=== PATIENT | female | born 1935 | race Caucasian/White ===

== ENCOUNTER 2019-10-21 12:44 | Inpatient (IN) | payer MEDICARE, SELFPAY ==
--- NOTE | ~2019-10-21 | US_ITS ---
EXAMINATION: US venous doppler [facility] DATE: 10/21/2019 14:24 INDICATION: Lower limb swelling. TECHNIQUE: Grayscale ultrasound images without and with compression and Doppler ultrasound images of the bilateral lower extremity veins were obtained. COMPARISON: None. FINDINGS: The visualized portions of right common femoral vein, profunda (deep) femoral vein, femoral vein, pop liteal vein, peroneal veins, posterior tibial veins, and greater saphenous vein outflow are patent. The visualized portions of left common femoral vein, profunda femoral vein, femoral vein, and posteri or tibial veins are patent. There is thrombus in left popliteal and peroneal veins. IMPRESSION: 1. Deep vein thrombosis involving left popliteal and peroneal veins. I called this result to Dr. Jason la on 10/21/19 at 14:28. Reviewed, dictated and finalized at location A. ND CREW SUPERVISOR IMPRESSION: 1. Deep vein thrombosis involving left popliteal and peroneal veins. I called this result to Dr. Butt on 10/21/19 at 14:28.
--- NOTE | ~2019-10-21 | XR_ITS ---
EXAMINATION: XR chest 1V portable DATE: 10/21/2019 13:49 INDICATION: Shortness of breath. TECHNIQUE: A single frontal view of the chest was obtained. COMPARISON: Chest 2 views 07/24/2018, chest CT 11/12/2018 FINDINGS: There is a chronic diffuse interstitial pattern in the lungs with a lower lung predominance . Calcified right lung nodules and calcified right hilar lymph nodes are consistent with old granulom atous disease. No pleural effusion or pneumothorax. The heart size is normal. IMPRESSION: 1. Stable chronic interstitial lung disease. Reviewed, dictated and finalized at location A. T MINISTRIES DIRECTOR
--- NOTE | ~2019-10-21 | XR_ITS ---
EXAMINATION: XR knee RT 2V DATE: 10/21/2019 13:49 INDICATION: Right knee pain and swelling. TECHNIQUE: 2 views of right knee were obtained. COMPARISON: None. FINDINGS: Bone alignment is normal. No fracture. There is mild osteoarthritis of medial and patellofe moral compartments and moderate osteoarthritis of lateral compartment. There is chondrocalcinosis of the menisci. There is a moderate-sized knee joint effusion. IMPRESSION: 1. Moderate right knee osteoarthritis. 2. Moderate-sized right knee joint effusion. Reviewed, dictated and finalized at location A. TIVE DETECTIVE
--- NOTE | ~2019-10-21 | XR_ITS ---
EXAMINATION: XR foot RT min 3V DATE: 10/21/2019 13:49 INDICATION: Right foot pain and swelling TECHNIQUE: Dorsoplantar, two oblique and lateral views of the right foot were obtained. COMPARISON: None. FINDINGS: Mild hallux valgus. Alignment is otherwise normal. No fracture. Mild polyarticular osteoarthritis at the first metacarpophalangeal and a few tarsal metatarsal and interphalangeal joints. No cortical ero sions or periosteal reaction. Small plantar calcaneal spur. Diffuse soft tissue swelling throughout t he right foot extending into the distal right lower leg. No right ankle joint effusion. No radiopaque foreign bodies were soft tissue gas. IMPRESSION: 1. No right ankle joint effusion or acute osseous abnormalities. 2. Small plantar calcaneal spur and mild polyarticular osteoarthritis. Reviewed, dictated and finalized at location A. MACY CASHIER
[2019-10-21 12:45] VITALS: BP 159/55; PULSE 71; RESP 18; TEMP 36.4; O2SAT 97
--- NOTE | 2019-10-21 13:20 | ECG_ITS ---
Measurements Intervals [place] Rate: 86 P: [place]: 0 QRS: -43 QRSD: 104 T: 64 QT: 375 QTc: 449 Interpretive Statements SINUS RHYTHM WITH MARKED FIRST DEGREE AV BLOCK WITH IRREGULAR RHYTHM DUE TO SINUS BRIAN PAUSE OR AV BLOCK LEFT AXIS DEVIATION CONSIDER ANTEROSEPTAL INFARCT, AGE INDETERMINATE BASELINE ARTIFACT- I, II ,III, AVF ABNORMAL ECG Electronically Signed On 10-21-2019 14:06:53 NICKER AND BREAKER by Shaheen Ricardo D.O.
--- NOTE | 2019-10-21 13:21 | ED.GENADULT ---
HPI - General Adult General Chief complaint: Extremity Injury, Lower Stated complaint: ambulance Time Seen by Provider: 10/21/19 13:05 Source: patient Mode of arrival: EMS Limitations: other ( foot and knee pain) History of Present Illness HPI narrative: Tamar is a 84-year-old female patient. She presents to the emergency room from home by ambulance. She states that she has had pain in the right foot for the past 1 week. There is no history of trauma. She had been using a cane. Since yesterday she has had pain to the right knee also. This is also without history of fall. The pain is intermittent and sharp. She rates it as moderate. She apparently has history of CHF. She has chronic swelling of both lower extremities. She is chronically short of breath. She is a heavy smoker. She has been smoking at least 1 pack of cigarettes a day for more than 50 years. She says that she does not have a diagnosis of COPD ; However, her knqrzrtr-eo-blc states that led done on does have COPD. She has no plans to quit her cigarettes. Her cvgpltjx-qx-rng got a walker for her today but she has not tried it yet. She states that till yesterday she was using a cane for walking with some difficulty. She has not tried using the walker today. MD complaint: Right foot and right knee pain Onset (ago): week(s) ( right foot has been hurting for 1 week. Right knee has been hurting since yesterday. ) Location: lower extremity ( See HPI narrative) Radiation: non-radiation Severity: moderate Severity scale (1-10): 7 Quality: sharp Pain Consistency: intermittent Relieving factors: none Exacerbating factors: other ( weightbear) Associated symptoms: cough ( has a chronic smoker's cough) and other ( no fever or chills.) Treatments prior to arrival: none Related Data Home Medications Medication Instructions Recorded Confirmed aspirin 81 mg tablet,delayed 81 mg PO DAILY 08/06/19 release Allergies Allergy/AdvReac Type Severity Reaction Status Date / Time No Known Allergies Allergy Mild Verified 08/06/19 12:48 Review of Systems Constitutional: Constitutional: Reports as per HPI, Denies chills and Denies fever(s) Eyes: Eyes: Reports as per HPI, Reports no additional eye complaints and Denies change in vision ENT: Reports system reviewed and no additional complaints, except as documented, Denies dizziness, Denies epistaxis, Denies nasal congestion and Denies sore throat Cardiovascular: Cardiovascular: Reports no additional cardiovascular complaints and Denies chest pain Respiratory: Respiratory: Reports cough ( Chronic smoker's cough especially in the morning.) and Reports dyspnea ( Chronic shortness of breath from COPD and smoking) Gastrointestinal: Gastrointestinal: Reports no additional gastrointestinal complaints, Denies abdominal pain, Denies nausea and Denies vomiting Genitourinary: Genitourinary: Reports no additional female genitourinary complaints, Denies hematuria, Denies dysuria and Denies urinary incontinence Musculoskeletal: Musculoskeletal: Reports as per HPI Integumentary/Breasts: Skin/Breast: Reports system reviewed and no additional complaints, except as docu, Denies erythema and Denies rash Neurologic: Reports system reviewed and no additional complaints, except as documented, Denies confusion, Denies vertigo, Denies syncope, Denies focal weakness, Denies numbness and Denies weakness Psychiatric: Psychiatric: Reports no additional psychiatric complaints and Reports anxiety Endocrine: Endocrine: Reports no additional endocrine complaints, Denies polydipsia and Denies polyuria Hematologic/Lymphatic: Hematologic/Lymphatic: Reports no additional hematologic/lymphatic complaints, Denies easy bleeding and Denies easy bruising Allergic/Immunologic: Allergic/Immunologic: Reports no additional allergic/immunologic complaints, Denies lip swelling and Denies tongue swelling [facility] Past Medical History Medical History (Updated 0
[2019-10-21 14:42] LABS: Basophils Absolute Auto 0.03 K/mm3 (0.00-0.10); Basophils Percent Auto 0.2 % (0.0-1.0); Hematocrit 36.6 % (35.0-42.0); Hemoglobin 11.8 g/dL (11.7-13.8); Immature Granulocyte Absolute 0.06 K/mm3 (0.00-0.00); Immature Granulocyte Percent A 0.5 % (0.0-0.0); Lymphocytes Absolute Auto 0.99 K/mm3 (1.10-4.50); Lymphocytes Percent Auto 7.5 % (18.0-42.0); Mean Corpuscular HGB Conc 32.2 g/dL (32.0-36.0); Mean Corpuscular Hemoglobin 28.8 pg (27.0-31.0); Mean Corpuscular Volume 89.3 fL (78.0-102.0); Mean Platelet Volume 11.6 fl (9.2-11.8); Monocytes Absolute Auto 0.97 K/mm3 (0.10-0.90); Monocytes Percent Auto 7.4 % (2.0-11.0); Neutrophils Absolute Auto 11.1 K/mm3 (1.7-7.2); Neutrophils Percent Auto 84.4 % (50.0-70.0); Platelet Count Result 146 K/mm3 (150-420); Red Cell Distribution Width 13.8 % (11.6-14.4); White Blood Count 13.2 K/mm3 (4.8-10.8)
[2019-10-21 14:47] VITALS: BP 154/79; PULSE 77; RESP 18; O2SAT 94
[2019-10-21 14:55] LABS: INR 1.1; Partial Thromboplastin Time 31.5 SEC (22.3-31.6); Prothrombin Time 11.1 Seconds (9.64-11.0)
[2019-10-21 15:05] LABS: BNP 413 pg/mL (0-100)
[2019-10-21 15:07] LABS: Alanine Aminotransferase 13 U/L (14-59); Alkaline Phosphatase 82 U/L (46-116); Anion Gap 14.1 mmol/L (7-16); Aspartate Amino Transferase 14 U/L (15-37); Bilirubin,Total 0.5 mg/dL (0.00-1.00); Blood Urea Nitrogen 45 mg/dL (7-18); Calcium 8.9 mg/dL (8.5-10.1); Carbon Dioxide 23 mmol/L (21-32); Chloride 104 mmol/L (98-108); Creatine Kinase 52 U/L (26-192); Estimated CRCL calculation 19 ml/min; Estimated Glomerular Filt Rate 22; Glucose 125 mg/dL (70-99); Osmolality Calculated 296 mOsm/kg (285-295); Potassium 4.1 mmol/L (3.5-5.1); Sodium 137 mmol/L (136-145); Total Protein 8.6 g/dL (6.4-8.2); Troponin I < 0.02 ng/mL (0.00-0.056)
[2019-10-21 15:27] VITALS: PULSE 68; RESP 18; O2SAT 98
[2019-10-21 15:55] VITALS: BMI 36.3
--- NOTE | 2019-10-21 15:55 | PC.NURSE ---
Patient admitted to floor from ED, transferred to bed with one assist. Oriented to room, call light in reach. Reviewed safety precautions, patient verbalizes understanding.
--- NOTE | 2019-10-21 15:57 | PM.IMHP ---
H&P: HPI History of Present Illness Chief complaint: ambulance Narrative: Tamar Bob is a 84 year old female who presented to the emergency room today from home by ambulance. She states that she has had moderate sharp 7/10 intermittent pain in the right foot for the past 1 week with weightbearing. There is no history of trauma. She had been using a cane. Since yesterday she has had pain to the right knee also. This is also without history of fall. The pain is intermittent and sharp. She rates it as moderate. She apparently has history of CHF. She has chronic swelling of both lower extremities. She is chronically short of breath. She is a heavy smoker, has a chronic smoker's cough, but denies fever and chills . She has been smoking at least 1-2 packs of cigarettes a day for more than 50 years. She says that she does not have a diagnosis of COPD. However, her srytnhxq-zi-bmp states that led done on does have COPD. She has no plans to quit her cigarettes. Her ysoqqubg-wr-pod got a walker for her today but she has not tried it yet. She states that till yesterday she was using a cane for walking with some difficulty. She has not tried using the walker today. In the ED, a Venous Doppler showed Deep vein thrombosis involving left popliteal and peroneal veins. She was admitted due to new onset immobility, acute DVT, CHF exacerbation, Review of Systems Constitutional: Constitutional: Reports as per HPI, Denies chills, Denies fever(s) and Denies weakness Eyes: Eyes: Reports as per HPI, Reports no additional eye complaints and Denies change in vision ENT: Reports system reviewed and no additional complaints, except as documented, Denies vertigo, Denies dizziness, Denies lip swelling, Denies epistaxis, Denies nasal congestion, Denies sore throat and Denies tongue swelling Cardiovascular: Cardiovascular: Reports no additional cardiovascular complaints, Denies chest pain, Denies syncope and Reports dyspnea ( Chronic shortness of breath from COPD and smoking) Respiratory: Respiratory: Reports cough ( Chronic smoker's cough especially in the morning.) and Reports dyspnea ( Chronic shortness of breath from COPD and smoking) Gastrointestinal: Gastrointestinal: Reports no additional gastrointestinal complaints, Denies abdominal pain, Denies nausea and Denies vomiting Genitourinary: Genitourinary: Reports no additional female genitourinary complaints, Denies hematuria, Denies dysuria and Denies urinary incontinence Musculoskeletal: Musculoskeletal: Reports as per HPI and Denies numbness Integumentary/Breasts: Skin/Breast: Reports system reviewed and no additional complaints, except as docu, Denies erythema and Denies rash Neurologic: Reports system reviewed and no additional complaints, except as documented, Denies confusion, Denies vertigo, Denies dizziness, Denies syncope, Denies focal weakness, Denies numbness and Denies weakness Psychiatric: Psychiatric: Reports no additional psychiatric complaints, Reports anxiety and Denies confusion Endocrine: Endocrine: Reports no additional endocrine complaints, Denies polydipsia and Denies polyuria Hematologic/Lymphatic: Hematologic/Lymphatic: Reports no additional hematologic/lymphatic complaints, Denies easy bleeding and Denies easy bruising Allergic/Immunologic: Allergic/Immunologic: Reports no additional allergic/immunologic complaints, Denies lip swelling and Denies tongue swelling PMFSH Past Medical History Medical History CKD (chronic kidney disease), stage I Generalized osteoarthritis Hyperlipidemia Hypertension Major depression, recurrent Nicotine dependence Osteoporosis Overweight Pulmonary nodule Surgical History Surgical History H/O vein stripping History of appendectomy History of cholecystectomy Family History Family History (Reviewed 10/23/19 @ 05:55 by Gillian Barriga AFRICANA STUDIES PROFESSOR
[2019-10-21 16:00] VITALS: BP 164/60; PULSE 68; RESP 20; TEMP 36.5; O2SAT 98
--- NOTE | 2019-10-21 16:30 | PC.NURSE ---
Patient in bed with family at bedside. LAKE yañez applied. Patient resting comfortably at this time
[2019-10-21 16:46] LABS: Hemoglobin A1C 5.5 % (<5.7)
[2019-10-21 17:00] LABS: Creatine Kinase 51 U/L (26-192)
[2019-10-21 17:07] LABS: Lactic Acid Reflex 1.5 mmol/L (0.4-2.0)
[2019-10-21 17:09] LABS: Troponin I < 0.02 ng/mL (0.00-0.056)
[2019-10-21 17:38] LABS: Magnesium 1.9 mg/dL (1.8-2.4)
--- NOTE | 2019-10-21 17:45 | PC.NURSE ---
Patient in bed, sinus rhythm per telemetry. Resting comfortably at this time
[2019-10-21] MEDS: FUROSEMIDE 20 MG TABLET PO (18:02)
--- NOTE | 2019-10-21 18:45 | PC.NURSE ---
Patient up to commode. Sinus rhythm per telemetry. LAKE hose in place
--- NOTE | 2019-10-21 19:23 | PC.NURSE ---
Patient in bed. Voiced c/o discomfort with LAKE hose. Encouraged to keep them on. Call light in reach.
[2019-10-21] MEDS: ACETAMINOPHEN 500 MG TABLET 1000 MG (19:34)
[2019-10-21 20:00] VITALS: BP 120/48; PULSE 14; PULSE 56; RESP 14; TEMP 36; O2SAT 95
--- NOTE | 2019-10-21 20:24 | PC.NURSE ---
Patient in bed. Eliquis to bed given at 2100. Patient c/o discomfortwith LAKE yañez.
[2019-10-21] MEDS: APIXABAN 2.5 MG TABLET 10 MG PO (21:23)
--- NOTE | 2019-10-21 21:30 | PC.NURSE ---
Patient reports pain level at 2-aceptable level. Eliqus given at 2100
--- NOTE | 2019-10-21 21:50 | PC.NURSE ---
Entered room to give evening medication. Patient sitting on edge of bed removing LAKE hsoe from left leg. Education given but patient refused to leave on. Also reminded her of safety precautins . Assisted to lay down.
--- NOTE | 2019-10-21 22:28 | PC.NURSE ---
Patient resting. Pain 0 on FLACC
[2019-10-22] VITALS (12 sets, daily range): BP systolic 118–192; BP diastolic 49–80; PULSE 49–90; RESP 14–20; TEMP 36.4–37.1; O2SAT 93–97
--- NOTE | 2019-10-22 00:35 | PC.NURSE ---
Patient resting. Pain 0 on FLACC.
--- NOTE | 2019-10-22 01:30 | PC.NURSE ---
Patient up to bedside commode.Transferred without difficulty. Continues to rate pain at2-within acceptable range.
--- NOTE | 2019-10-22 02:31 | PC.NURSE ---
Patient resting Pain level 0 on FLACC.
--- NOTE | 2019-10-22 03:21 | PC.NURSE ---
Patient resting. pain 0 on FLACC.
--- NOTE | 2019-10-22 04:20 | PC.NURSE ---
Assisted patient to bedside commode. Reports pain level at 1. Much improved. Positioned in bed for comfort with call light in reach
--- NOTE | 2019-10-22 05:32 | PC.NURSE ---
Patient resting with call light in reach. Pain 0 on FLACC
[2019-10-22 05:46] LABS: Basophils Absolute Auto 0.04 K/mm3 (0.00-0.10); Basophils Percent Auto 0.4 % (0.0-1.0); Eosinophils Absolute Auto 0.21 K/mm3 (0.02-0.50); Hematocrit 33.7 % (35.0-42.0); Immature Granulocyte Absolute 0.03 K/mm3 (0.00-0.00); Immature Granulocyte Percent A 0.3 % (0.0-0.0); Lymphocytes Absolute Auto 1.64 K/mm3 (1.10-4.50); Lymphocytes Percent Auto 15.8 % (18.0-42.0); Mean Corpuscular HGB Conc 32.6 g/dL (32.0-36.0); Mean Corpuscular Hemoglobin 29.6 pg (27.0-31.0); Mean Corpuscular Volume 90.6 fL (78.0-102.0); Mean Platelet Volume 11.2 fl (9.2-11.8); Monocytes Percent Auto 8.7 % (2.0-11.0); Neutrophils Absolute Auto 7.5 K/mm3 (1.7-7.2); Neutrophils Percent Auto 72.8 % (50.0-70.0); Platelet Count Result 139 K/mm3 (150-420); Red Blood Count 3.72 M/mm3 (4.20-5.40); Red Cell Distribution Width 13.9 % (11.6-14.4); White Blood Count 10.4 K/mm3 (4.8-10.8)
[2019-10-22 06:01] LABS: Alanine Aminotransferase 14 U/L (14-59); Albumin Level 2.7 g/dL (3.4-5.0); Alkaline Phosphatase 75 U/L (46-116); Anion Gap 14.9 mmol/L (7-16); Aspartate Amino Transferase 22 U/L (15-37); Bilirubin,Total 0.5 mg/dL (0.00-1.00); Blood Urea Nitrogen 45 mg/dL (7-18); Calcium 8.6 mg/dL (8.5-10.1); Carbon Dioxide 23 mmol/L (21-32); Chloride 104 mmol/L (98-108); Estimated CRCL calculation 20 ml/min; Estimated Glomerular Filt Rate 23; Glucose 97 mg/dL (70-99); Osmolality Calculated 297 mOsm/kg (285-295); Potassium 3.9 mmol/L (3.5-5.1); Sodium 138 mmol/L (136-145)
[2019-10-22] MEDS: SERTRALINE HCL 50 MG TABLET PO (08:26)
[2019-10-22] MEDS: ASPIRIN 81 MG ENTERIC TABLET PO (08:26)
[2019-10-22] MEDS: lisinopriL 20 MG TABLET 40 MG PO (08:26)
[2019-10-22] MEDS: PRAVASTATIN SODIUM 20 MG TABLET 40 MG PO (08:26)
[2019-10-22] MEDS: FUROSEMIDE 20 MG TABLET PO (08:27)
[2019-10-22] MEDS: APIXABAN 2.5 MG TABLET 10 MG PO (08:27)
[2019-10-22] MEDS: LIDOCAINE 5% PATCH 2 PATCH TRANSDERM (08:58)
--- NOTE | 2019-10-22 13:17 | ECHO_ITS ---
Patient Info Name: Tamar Bob Age: 84 years : 1935 Gender: Female Ht: 62 in Wt: 192 lbs BSA: 1.99 m2 HR: 60 bpm BP: 130 / 60 mmHg Technical Quality: Poor Exam Date: 10/22/2019 1:46 PM Exam Location: [facility] Patient Status: Inpatient Admit Date: 10/22/2019 Staff Ordering Physician: Gillian Barriga NP Attending Provider: Davide Butt MD Referring Physician: Linus PETERS; Exam Type: CA echo dop color flow w con Study Info Indications I44.30 - Unspecified atrioventricular block Complete two-dimensional, color flow and Doppler transthoracic echocardiogram is performed with contrast to opacify the left ventrical and to improve the deliniation of the left ventrical endocarial boarders. Strain analysis performed. Contrast/Agitated Saline Contrast/Ag. Saline: Definity Amount: 5.00 ml Existing IV Access: Yes IV Access Condition: patent with no signs of infiltration New IV Access: Right History/Risk Factors Hypertension: Yes Dyslipidemia: Yes Obesity: Yes Renal Disease: Yes Diabetes Mellitus: No Tobacco Use: Current - Every Day Deep Vein Thrombosis (DVT): Acute Frailty Scale (CSHA): 5: Mildly Frail Prior Interventions Pacemaker: No PCI: No CABG: No Valve Surgery: No ICD: No PV Intervention: None Heart Transplant: No Summary 1. Left ventricular chamber dimension is normal. 2. Definity contrast administered improved wall motion interpretation. 3. Left ventricular systolic function is normal, estimated at 65-70%. 4. There is mildly increased left ventricular wall thickness. 5. The left ventricular diastolic function is grade I diastolic dysfunction. 6. e' .06 suggests diastolic dysfunction by tissue doppler. 7. Left atrial chamber dimension is mildly enlarged. 8. The aortic valve is not well visualized. 9. Cannot determine number of aortic valve leaflets. 10. By valve area there is mild aortic valve stenosis with a peak velocity of 132.72 cm/s and aortic valve area of 1.70 cm2. 11. There is mild to moderate aortic valve regurgitation. 12. The mitral valve has moderate calcified annulus. 13. There is mild mitral valve regurgitation. 14. There is mild to moderate tricuspid valve regurgitation. 15. No pulmonary hypertension, estimated pulmonary arterial systolic pressure is 18 mmHg. Recommendations * Smoking cessation counseling is recommended for this patient. Left Ventricle e' .06 suggests diastolic dysfunction by tissue doppler. Definity contrast administered improved wall motion interpretation. Left ventricular chamber dimension is normal. Left ventricular systolic function is normal, estimated at 65-70%. There is mildly increased left ventricular wall thickness. The left ventricular diastolic function is grade I diastolic dysfunction. Right Ventricle Right ventricular chamber dimension is normal. Right ventricular systolic function is normal. Left Atria Left atrial chamber dimension is mildly enlarged. Right Atria Right atrial chamber dimension is normal. Aortic Valve By valve area there is mild aortic valve stenosis with a peak velocity of 132.72 cm/s and aortic valve area of 1.70 cm2. Cannot determine number of aortic valve leaflets. The aortic valve is not well visualized. There is mild to moderate aortic valve regurgitation. Pulmonic Valve There is no pulmonic regurgitation. Mitral Valve The
[2019-10-22] MEDS: PHARMACIST COMMUNICATION ORDER 1 EACH XX ×2 (13:27)
--- NOTE | 2019-10-22 15:03 | PC.NURSE ---
1430 ULS IN ROOM TO DO ECHO.
--- NOTE | 2019-10-22 16:29 | PM.IMPN ---
Progress Note: A&P Assessment and Plan (1) Acute deep vein thrombosis (DVT) of popliteal vein of left lower extremity: Code(s): I82.432 - Acute embolism and thrombosis of left popliteal vein Status: Acute Assessment and Plan: Venous US today showed Deep vein thrombosis involving left popliteal and peroneal veins. Transitioning from Eliquis daily orally to Lovenox to Coumadin today. Tamar will remain INPATIENT during transition and Anticoagulation Bridging therapy. placed on bleeding precautions daily CBC, CMP, Coags Care Coordination consult to work with insurance/patient/family to sort out affordable anticaogulation options . LAKE hose ordered. [facility] tolerated PT/OT evaluation well (2) CHF exacerbation: Code(s): I50.9 - Heart failure, unspecified Status: Acute Assessment and Plan: BNP elevated at 413 (keeping in mind her renal failure) changed her from HCTZ 25 mg to Lasix 20 mg daily. Consider adding Norvasc if BP needs further control. went with low dose lasix to start due to her chronic renal failure also trying to avoid fluid restriction due to her chronic renal failure will likely need to titrate her lasix to 40mg daily as needed - will continue to monitor edema level, daily weights, BPs, HRs, BNPs, and I/Os LAKE stockings ordered no recent ECHO studies found, ECHO ordered.. Continue Continuous Telemetry monitoring EKG reviewed Appears to have NSR for the most part, with rare intermittent short pauses - Would benefit from Bottle Blowing Machine Tender or Inspecting Engineer study completed after discharge. at discharge , recommend Bottle Blowing Machine Tender F/U (3) COPD (chronic obstructive pulmonary disease): Qualifiers: COPD type: emphysema Emphysema type: unspecified Qualified Code(s): J43.9 - Emphysema, unspecified Code(s): J44.9 - Chronic obstructive pulmonary disease, unspecified Status: Acute Assessment and Plan: Tamar continues to smoke 1-2 PPD at home encouraged smoking cessation ordered nicotine patch lungs clear at this time no home medications for COPD at this time and patient not currently in COPD exacerbation ordered Incentive spirometry and PRN DuoNebs at discharge , recommend Tube Coremaker F/U (4) Osteoarthritis of foot, right: Qualifiers: Osteoarthritis type: primary Qualified Code(s): M19.071 - Primary osteoarthritis, right ankle and foot Code(s): M19.071 - Primary osteoarthritis, right ankle and foot Status: Acute Assessment and Plan: ACUTE pain interfering with patient's mobility and independence fall risk LAKE hose stockings using Lasix to minimize swelling elevated daily weights PT eval and treat Ordered Lidocaine pain patches for comfort Recommend Home Health PT/OT and/or Outpatient PT/OT after discharge. (5) Osteoarthritis of right knee: Qualifiers: Osteoarthritis type: primary Qualified Code(s): M17.11 - Unilateral primary osteoarthritis, right knee Code(s): M17.11 - Unilateral primary osteoarthritis, right knee Status: Acute Assessment and Plan: ACUTE pain interfering with patient's mobility and independence fall risk LAKE hose stockings using Lasix to minimize swelling elevated daily weights PT eval and treat Ordered Lidocaine pain patches for comfort Recommend Home Health PT/OT and/or Outpatient PT/OT after discharge. (6) CKD (chronic kidney disease), stage I: Code(s): N18.1 - Chronic kidney disease, stage 1 Status: Acute Assessment and Plan: continued her daily Lisinopril continued BP and fluid/edema/CHF control Creatinine at admssion 2.15, creatinine 2.07 today daily CMP for monitoring discontinued HCTZ and started Lasix at discharge , recommend Retail Furniture Sales F/U (7) Hyperparathyroidism: Code(s): E21.3 - Hyperparathyroidism, unspecified Status: Acute Assessment and Plan: Noticed her significantly elevated
[2019-10-22] MEDS: WARFARIN (*PBKC) 5 MG TABLET PO (16:55)
--- NOTE | 2019-10-22 17:30 | PC.NURSE ---
Patient sitting up in chair resting. Family in room visiting with patient. Call light at side.
[2019-10-22] MEDS: ENOXAPARIN 100 MG/ML SYRINGE 90 MG SUB-Q (21:27)
--- NOTE | 2019-10-22 22:45 | PC.NURSE ---
Patient appears to be sleeping by the rise and fall of her chest. Respirations even and unlabored. No distress noted. Call light in reach.
--- NOTE | 2019-10-22 23:10 | PM.EVENT ---
Event Note Event Note Event Note: Patient states that she feels better than when she arrived. She denies shortness of breath and chest pain. Her insurance will not cover Eliquis I discussed this with the patient and the need to switch to a medication that she can afford and take. This means transition to enoxaparin and Coumadin. Her daughter is a nurse and can help her with injections at home however we will monitor for the next day or 2 given her reluctance to do injections and her chronic kidney disease. Regular rate rhythm without murmur. Lungs clear to auscultation. No edema. Changed and patient for transition to warfarin with enoxaparin bridging. I have reviewed the chart and examined the patient. I discussed the patient's care with A Linus OLIVEIRA and agree with her assessment and plan.
--- NOTE | 2019-10-23 01:00 | PC.NURSE ---
Patient ambulated to/from bathroom with walker and CGA with steady gait. Respirations even and unlabored. Patient denied pain/complaints/needs. No distress noted. Call light in reach.
--- NOTE | 2019-10-23 02:10 | PC.NURSE ---
Patient appears to be sleeping by the rise and fall of her chest. Respirations even and unlabored. No distress noted. Call light in reach
--- NOTE | 2019-10-23 02:32 | PC.NURSE ---
Addendum entered by Mely Ardon RN 10/23/19 02:34: Note time should be 10/22/2019 @ 2130 Original Note: Patient ambulated to/from bathroom with walker and CGA with steady gait. Patient denied any pain/complaints/needs @ the time. No distress noted. Lovenox given as ordered and patient tolerated well. Call light in reach.
--- NOTE | 2019-10-23 03:05 | PC.NURSE ---
Patient appears to be sleeping by the rise and fall of her chest. Respirations even and unlabored. No distress noted. Call light in reach.
[2019-10-23 04:00] VITALS: BP 180/70; PULSE 79; RESP 20; TEMP 36.9; O2SAT 94
[2019-10-23 05:22] LABS: Basophils Absolute Auto 0.04 K/mm3 (0.00-0.10); Basophils Percent Auto 0.4 % (0.0-1.0); Eosinophils Absolute Auto 0.14 K/mm3 (0.02-0.50); Eosinophils Percent Auto 1.2 % (1.0-6.0); Hematocrit 34.5 % (35.0-42.0); Hemoglobin 11.4 g/dL (11.7-13.8); Immature Granulocyte Absolute 0.03 K/mm3 (0.00-0.00); Immature Granulocyte Percent A 0.3 % (0.0-0.0); Lymphocytes Absolute Auto 1.22 K/mm3 (1.10-4.50); Lymphocytes Percent Auto 10.8 % (18.0-42.0); Mean Corpuscular Hemoglobin 29.2 pg (27.0-31.0); Mean Corpuscular Volume 88.5 fL (78.0-102.0); Mean Platelet Volume 11.2 fl (9.2-11.8); Monocytes Absolute Auto 0.79 K/mm3 (0.10-0.90); Neutrophils Absolute Auto 9.1 K/mm3 (1.7-7.2); Neutrophils Percent Auto 80.3 % (50.0-70.0); Platelet Count Result 159 K/mm3 (150-420); Red Cell Distribution Width 13.8 % (11.6-14.4); White Blood Count 11.3 K/mm3 (4.8-10.8)
[2019-10-23 05:35] LABS: INR 1.2
[2019-10-23 05:40] LABS: Alanine Aminotransferase 19 U/L (14-59); Albumin Level 2.6 g/dL (3.4-5.0); Alkaline Phosphatase 72 U/L (46-116); Anion Gap 14.8 mmol/L (7-16); Aspartate Amino Transferase 26 U/L (15-37); Bilirubin,Total 0.5 mg/dL (0.00-1.00); Blood Urea Nitrogen 43 mg/dL (7-18); Calcium 8.5 mg/dL (8.5-10.1); Carbon Dioxide 23 mmol/L (21-32); Chloride 103 mmol/L (98-108); Estimated CRCL calculation 21 ml/min; Estimated Glomerular Filt Rate 25; Glucose 104 mg/dL (70-99); Osmolality Calculated 294 mOsm/kg (285-295); Potassium 3.8 mmol/L (3.5-5.1); Sodium 137 mmol/L (136-145); Total Protein 7.9 g/dL (6.4-8.2)
[2019-10-23 06:48] LABS: BNP 741 pg/mL (0-100)
[2019-10-23 08:00] VITALS: BP 161/94; PULSE 62; PULSE 63; RESP 18; TEMP 37.1; O2SAT 97
[2019-10-23] MEDS: FUROSEMIDE 20 MG TABLET PO (08:59)
[2019-10-23] MEDS: LIDOCAINE 5% PATCH 2 PATCH TRANSDERM (08:59)
[2019-10-23] MEDS: ASPIRIN 81 MG ENTERIC TABLET PO (08:59)
[2019-10-23] MEDS: lisinopriL 20 MG TABLET 40 MG PO (09:02)
[2019-10-23] MEDS: SERTRALINE HCL 50 MG TABLET PO (09:02)
[2019-10-23] MEDS: PRAVASTATIN SODIUM 20 MG TABLET 40 MG PO (09:02)
[2019-10-23] MEDS: FUROSEMIDE 40 MG TABLET PO (11:27)
--- NOTE | 2019-10-23 11:50 | PC.NURSE ---
SBA up to chair for lunch, used walker, tolerated well
[2019-10-23 12:00] VITALS: BP 128/78; PULSE 65; RESP 20; TEMP 36.3; O2SAT 97
[2019-10-23] MEDS: WARFARIN (*PBKC) 2 MG TABLET 8 MG PO (12:44)
--- NOTE | 2019-10-23 13:08 | PM.DS ---
DS: Diagnosis Admitting Diagnosis Admitting Diagnosis: Acute embolism and thrombosis of left popliteal vein <JesseLAURO MendozaC - Last Filed: 10/23/19 15:04> Discharge Diagnosis (1) Acute deep vein thrombosis (DVT) of popliteal vein of left lower extremity: Code(s): I82.432 - Acute embolism and thrombosis of left popliteal vein <VINCE Reno-C - Last Filed: 10/23/19 15:04> Status: Acute <VINCE Reno-C - Last Filed: 10/23/19 15:04> Assessment and Plan: Venous US showed Deep vein thrombosis involving left popliteal and peroneal veins. - Patient was discharged on Lovenox for 8 days 90 mg daily and warfarin 5 mg daily for 8 days she will do a repeat INR on Monday and has appointment with her doctor Dr. Blue on Monday - patient educated on signs and symptoms of PE - patient [id number] and daughter are registered nurses they will administer Lovenox for her. <VINCE Reno-C - Last Filed: 10/23/19 15:04> (2) CHF exacerbation: Code(s): I50.9 - Heart failure, unspecified <VINCE Reno-C - Last Filed: 10/23/19 15:04> Status: Acute <VINCE Reno-C - Last Filed: 10/23/19 15:04> Assessment and Plan: BNP elevated Additional Lasix given 40 mg today home dose increased to 40 mg daily - primary care physician notify - echo indicates - repeat BNP Monday - renal function repeat on Monday to monitor renal function due to use of Lasix. PCP notify will adjust as needed <VINCE Reno-C - Last Filed: 10/23/19 15:04> (3) COPD (chronic obstructive pulmonary disease): Qualifiers: COPD type: emphysema Emphysema type: unspecified Qualified Code(s): J43.9 - Emphysema, unspecified <VINCE Reno-C - Last Filed: 10/23/19 15:04> Code(s): J44.9 - Chronic obstructive pulmonary disease, unspecified <VINCE Reno-C - Last Filed: 10/23/19 15:04> Status: Acute <VINCE Reno-C - Last Filed: 10/23/19 15:04> Assessment and Plan: Tamar continues to smoke 1-2 PPD at home encouraged smoking cessation - patient refused nicotine patch - patient discharged with the albuterol rescue inhaler. <VINCE Reno-C - Last Filed: 10/23/19 15:04> (4) Osteoarthritis of foot, right: Qualifiers: Osteoarthritis type: primary Qualified Code(s): M19.071 - Primary osteoarthritis, right ankle and foot <VINCE Reno-C - Last Filed: 10/23/19 15:04> Code(s): M19.071 - Primary osteoarthritis, right ankle and foot <VINCE Reno-C - Last Filed: 10/23/19 15:04> Status: Acute <VINCE Reno-C - Last Filed: 10/23/19 15:04> Assessment and Plan: ACUTE pain interfering with patient's mobility and independence - continue anti-inflammatory medication and DME for safety and to prevent falls <VINCE Reno-C - Last Filed: 10/23/19 15:04> (5) Osteoarthritis of right knee: Qualifiers: Osteoarthritis type: primary Qualified Code(s): M17.11 - Unilateral primary osteoarthritis, right knee <VINCE Reno-C - Last Filed: 10/23/19 15:04> Code(s): M17.11 - Unilateral primary osteoarthritis, right knee <VINCE Reno-C - Last Filed: 10/23/19 15:04> Status: Acute <VINCE Reno-C - Last Filed: 10/23/19 15:04> Assessment and Plan: pain interfering with patient's mobility and independence - continue anti-inflammatory medication and DME for safety and to prevent falls <VINCE Reno-C - Last Filed: 10/23/19 15:04> (6) CKD (chronic kidney disease), stage I: Code(s): N18.1 - Chronic kidney disease, stage 1 <ROBERT Reno - Last Filed: 10/23/19 15:04> Status: Acute <ROBERT Reno - Last Filed: 10/23/19 15:04> Assessment and Plan: improved
--- NOTE | 2019-10-23 14:40 | PC.NURSE ---
Discharge to home via wheel chair, education on medication given to patient and daughter, no questions voiced, all personal items given to patient
--- NOTE | 2019-10-28 13:32 | PC.NURSE ---
Discharge call back [phone] Spoke with patient she stated Daughter is giving me my shots and making sure I get all my medications. The RNs were all really nice and caring. They took good care of me. Patient stated my daughter dixon handled all of the discharge instructions and had no complaints or questions about any of it.
== END 2019-10-23 14:40 | disposition home or self-care (01) | DRG 300 ==
LOC: CHSED 15:20 → CHS2ND 15:31
PROVIDERS: Emergency Medicine; Nurse Practitioner; Admitting Provider Surgery; Emergency Provider Surgery; PCP Family Medicine; Visit Provider Surgery
DX: I82.432 Acute embolism and thrombosis of left popliteal vein (principal); I13.0 Hypertensive heart and chronic kidney disease with heart failure and stage 1 through stage 4 chronic kidney disease, or unspecified chronic kidney disease; F33.9 Major depressive disorder, recurrent, unspecified; I82.452 Acute embolism and thrombosis of left peroneal vein; N18.1 Chronic kidney disease, stage 1; I50.9 Heart failure, unspecified; E78.5 Hyperlipidemia, unspecified; M81.0 Age-related osteoporosis without current pathological fracture; J44.9 Chronic obstructive pulmonary disease, unspecified; M19.071 Primary osteoarthritis, right ankle and foot; M17.11 Unilateral primary osteoarthritis, right knee; E21.3 Hyperparathyroidism, unspecified; F17.210 Nicotine dependence, cigarettes, uncomplicated
CPT/HCPCS: 36415; 71045; 73560; 73630; 80053; 82550; 82553; 83036; 83605; 83735; 83880; 84484; 85025; 85610; 85730; 93005; 93970; 97161; 99285; A9270; C8929; G0378; J1650

== ENCOUNTER 2019-11-04 12:36 | Emergency (ER) | payer MEDICARE, SELFPAY ==
[2019-11-04 13:05] VITALS: BP 186/70; PULSE 69; RESP 18; TEMP 37; O2SAT 97
--- NOTE | 2019-11-04 13:45 | ED.GIBLEED ---
HPI - GI Bleed General Chief complaint: GI Bleed Stated complaint: bleeding in different places Time Seen by Provider: 11/04/19 13:00 Source: patient and family Mode of arrival: wheelchair Limitations: clinical condition History of Present Illness HPI Narrative: Tamar is an 84-year-old female patient. She presents to the ER with family. History is from the patient as well as from the family. Tamar had nose bleed last Monday ( this is Monday) this was only once. Yesterday she had 1 emesis which was somewhat dark colored. Today she had 1 dark stool. It was normal consistency. No diarrhea. She denies any abdominal pain. MD complaint: other ( See HPI narrative) Onset (ago): unknown ( see HPI narrative) Pain Consistency: other ( no pain) Relieving factors: other (NA) Exacerbating factors: none Context: other ( on anticoagulation with Lovenox and warfare for DVT in the leg) Associated symptoms: denies other symptoms, abdominal pain, vomiting ( vomited once yesterday, none since then) and other bleeding ( see HPI narrative) Treatments Prior to Arrival: none Related Data Home Medications Medication Instructions Recorded Confirmed aspirin 81 mg tablet,delayed 81 mg PO DAILY 08/06/19 11/04/19 release enoxaparin [Lovenox] 90 mg SUB-Q DAILY 11/04/19 11/04/19 Allergies Allergy/AdvReac Type Severity Reaction Status Date / Time No Known Allergies Allergy Mild Verified 10/25/19 13:52 Review of Systems Review of Systems: All systems reviewed & are unremarkable except as noted in HPI and below Constitutional: Constitutional: Reports as per HPI, Denies chills and Denies fever(s) Eyes: Eyes: Reports as per HPI and Denies change in vision ENT: Reports system reviewed and no additional complaints, except as documented, Reports epistaxis and Denies sore throat Cardiovascular: Cardiovascular: Reports as per HPI, Denies chest pain and Denies radiating jaw, neck or arm pain Respiratory: Respiratory: Reports as per HPI, Denies cough and Denies dyspnea Gastrointestinal: Gastrointestinal: Reports as per HPI, Denies abdominal pain and Reports vomiting Comments: see HPI narrative for details Genitourinary: Genitourinary: Reports as per HPI, Denies hematuria and Denies dysuria Musculoskeletal: Musculoskeletal: Reports no additional musculoskeletal complaints and Denies back pain Integumentary/Breasts: Skin/Breast: Reports system reviewed and no additional complaints, except as docu and Denies rash Neurologic: Reports system reviewed and no additional complaints, except as documented, Denies vertigo and Denies syncope Psychiatric: Psychiatric: Reports no additional psychiatric complaints, Denies anxiety and Denies depression Endocrine: Endocrine: Reports no additional endocrine complaints, Denies polydipsia and Denies polyuria Hematologic/Lymphatic: Comments: Lisa gentile I is on Lovenox and warfarin for anticoagulation for DVT in the left leg Allergic/Immunologic: Allergic/Immunologic: Reports no additional allergic/immunologic complaints, Denies lip swelling and Denies throat swelling PMFSH Past Medical History Medical History (Updated 11/04/19 @ 16:29 by Davide Butt MD) CKD (chronic kidney disease), stage I Generalized osteoarthritis History of COPD Hyperlipidemia Hypertension Major depression, recurrent Muscular deconditioning Nicotine dependence Osteoporosis Overweight Pulmonary nodule Surgical History Surgical History H/O vein stripping History of appendectomy History of cholecystectomy Family History Family History Mother Hypertension Breast cancer Sister Asthma Hypertension Father , at age 36 No problems noted. Social History Social History Smoking packs per day: 1 Smoking cigarettes per day:
[2019-11-04 13:51] LABS: Basophils Absolute Auto 0.05 K/mm3 (0.00-0.10); Basophils Percent Auto 0.6 % (0.0-1.0); Eosinophils Absolute Auto 0.15 K/mm3 (0.02-0.50); Eosinophils Percent Auto 1.9 % (1.0-6.0); Immature Granulocyte Absolute 0.04 K/mm3 (0.00-0.00); Immature Granulocyte Percent A 0.5 % (0.0-0.0); Lymphocytes Absolute Auto 1.49 K/mm3 (1.10-4.50); Lymphocytes Percent Auto 18.9 % (18.0-42.0); Mean Corpuscular HGB Conc 33.3 g/dL (32.0-36.0); Mean Corpuscular Hemoglobin 29.7 pg (27.0-31.0); Mean Corpuscular Volume 89.2 fL (78.0-102.0); Mean Platelet Volume 11.8 fl (9.2-11.8); Monocytes Absolute Auto 0.62 K/mm3 (0.10-0.90); Monocytes Percent Auto 7.9 % (2.0-11.0); Neutrophils Absolute Auto 5.5 K/mm3 (1.7-7.2); Neutrophils Percent Auto 70.2 % (50.0-70.0); Platelet Count Result 202 K/mm3 (150-420); Red Cell Distribution Width 13.9 % (11.6-14.4); White Blood Count 7.9 K/mm3 (4.8-10.8)
[2019-11-04 14:08] LABS: Alanine Aminotransferase 26 U/L (14-59); Alkaline Phosphatase 69 U/L (46-116); Ammonia 10 umol/L (11-32); Anion Gap 16.5 mmol/L (7-16); Aspartate Amino Transferase 17 U/L (15-37); Bilirubin,Total 0.2 mg/dL (0.00-1.00); Blood Urea Nitrogen 100 mg/dL (7-18); Calcium 8.7 mg/dL (8.5-10.1); Carbon Dioxide 23 mmol/L (21-32); Chloride 102 mmol/L (98-108); Estimated CRCL calculation 15 ml/min; Estimated Glomerular Filt Rate 17; Glucose 106 mg/dL (70-99); Lipase 147 U/L (73-393); Osmolality Calculated 313 mOsm/kg (285-295); Potassium 5.5 mmol/L (3.5-5.1); Sodium 136 mmol/L (136-145); Total Protein 8.4 g/dL (6.4-8.2)
[2019-11-04 14:19] LABS: Prothrombin Time 29.6 Seconds (9.64-11.0)
--- NOTE | 2019-11-04 15:10 | PC.NURSE ---
Dr. 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 Barrera. Dr. Barrera requests pt be transported to [facility] through hospitalist and he will constult. [facility] contacted and no beds available and no wait list for a bed available. edp aware.
[2019-11-04 15:11] LABS: Occult Blood Positive (Negative)
[2019-11-04 15:20] VITALS: BP 197/71; PULSE 66; RESP 20; O2SAT 96
--- NOTE | 2019-11-04 15:30 | PC.NURSE ---
Pt requesting [facility] for transport.
--- NOTE | 2019-11-04 15:42 | PC.NURSE ---
[facility] contacted about possible transfer.
--- NOTE | 2019-11-04 16:10 | PC.NURSE ---
Jessie HEREDIA to accept pt at [facility] for admission, family aware.
[2019-11-04 16:20] VITALS: BP 190/80; PULSE 60; RESP 18; O2SAT 98
[2019-11-04 17:25] VITALS: BP 176/90; PULSE 65; RESP 18; O2SAT 97
== END 2019-11-04 17:33 | disposition short-term general hospital (02) ==
PROVIDERS: Emergency Provider Surgery; PCP Family Medicine
DX: Z79.01 Long term (current) use of anticoagulants (principal); K92.1 Melena; N18.3 Chronic kidney disease, stage 3 (moderate); J44.9 Chronic obstructive pulmonary disease, unspecified; E78.5 Hyperlipidemia, unspecified; I10 Essential (primary) hypertension; F17.200 Nicotine dependence, unspecified, uncomplicated
CPT/HCPCS: 36415; 80053; 82140; 82272; 83690; 83735; 85025; 85610; 85730; 99285

== ENCOUNTER 2019-11-04 18:04 | Inpatient (IN) | payer MEDICARE, SELFPAY ==
[2019-11-04 18:12] VITALS: PULSE 73
[2019-11-04 18:46] VITALS: BP 183/92; PULSE 62; RESP 18; TEMP 36; BMI 33.2
[2019-11-04 19:24] LABS: Hematocrit 36.7 % (37.0-47.0); Hemoglobin 11.7 g/dL (12.0-15.0)
[2019-11-04 20:00] VITALS: BP 182/40; PULSE 54; PULSE 58; RESP 20; TEMP 36.6; O2SAT 96
--- NOTE | 2019-11-04 20:30 | PM.IMHP ---
H&P: HPI History of Present Illness Chief complaint: GI bleed. Narrative: Tamar Bob is an 84-year-old female with hypertension, hyperlipidemia, and recent diagnosis of lower extremity DVT for which she was started on warfarin and Lovenox who is being directly admitted to the hospitalist service from the emergency department at [facility] for further evaluation of GI bleeding. With a left lower extremity DVT on October 31, 2019 after she presented to the emergency department complaining of right leg pain. She was discharged with Lovenox, 90 milligrams daily as well as warfarin 5 milligrams daily with instructions for follow-up INR on October 28. I am not certain she actually had that drawn, and there are no labs in our computer done on that day. In any regard, she presented once again to the outside hospital emergency department today for evaluation of epistaxis x2 as well as emesis x1. Reportedly the patient had 1 dark stool today as well. She seems to be feeling just fine, however despite the bleeding. She is being transferred to this facility for GI consult given reported hematemesis and melena as well as Hemoccult-positive stool. She denies headache, chest pain, shortness of breath, pleuritic pain, abdominal pain, epigastric pain, and any further nausea or vomiting. She has not had any stools since passing the dark stool this morning. Review of Systems Review of Systems: All systems reviewed & are unremarkable except as noted in HPI and below PMFSH Past Medical History Medical History (Updated 11/04/19 @ 23:39 by Jessie Benavides PA-C) Chronic kidney disease, stage [address] is [address] Jaylen Barrera at [facility] and was told recently that she is at stage III. Creatinine has ranged from 1.91 to 2.62 in the last several months. Generalized osteoarthritis GERD (gastroesophageal reflux disease) History of COPD Hyperlipidemia Hypertension Major depression, recurrent Osteoporosis Pulmonary nodule Tobacco dependence Surgical History Surgical History H/O vein stripping History of appendectomy History of cholecystectomy Family History Family History Mother Hypertension Breast cancer Sister Asthma Hypertension Father , at age 36 No problems noted. Social History Social History (Updated 11/04/19 @ 23:33 by Jessie Benavides PA-C) Social History: The patient lives in her own home in [place]. She has smoked 1 pack of cigarettes per day at least for the last 50 years. She has 6 children. She designates her daughter Lisa and [id number] Shiloh as her surrogate decision makers and she wishes to be a full code. Smoking packs per day: 1 Smoking cigarettes per day: 20.0 Years smoked: 70 Smoking pack-years: 70.00 Smoking status: Current every day smoker Tobacco type: cigarettes Second hand tobacco smoke exposure: Yes Alcohol intake: never Drinks per week: 0 Substance use: never Additional living arrangements comments: . 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 Gender identity (if verbalized by the patient): Female Spiritual care concerns: No Agree to blood products: Yes Meds Home Medications and Allergies Home Medications Medication Instructions Recorded Confirmed Type sertraline 50 mg tablet 50 mg PO DAILY #90 tablet 09/24/19 11/04/19 Rx albuterol sulfate 1 inhalation INHALATION QID PRN 10/23/19 11/04/19 Rx #90 mcg furosemide 40 mg PO DAILY #30 tablet 10/23/19 11/04/19 Rx potassium chloride 20 meq PO DAILY #30 tablet 10/23/19 11/04/19 Rx aspirin 325 mg PO DAILY 11/04/19 11/04/19 History enoxaparin [Lovenox] 90 mg SUB-Q DAILY 11/04/19 11/04/19 History lisinopril 40 mg PO HS 11/04/19 11/04/19 History pravastatin 40 mg PO HS 11/04/19 11/04/19 Histo
[2019-11-04 22:00] VITALS: PULSE 46
[2019-11-04 23:33] VITALS: BP 155/39; PULSE 43; RESP 18; TEMP 36.7; O2SAT 99
[2019-11-04 23:50] VITALS: PULSE 43; RESP 18; O2SAT 99
[2019-11-05] VITALS (13 sets, daily range): BP systolic 149–154; BP diastolic 31–83; PULSE 38–72; RESP 16–20; TEMP 36.3–36.7; O2SAT 95–99; BMI 33.5
[2019-11-05] MEDS: PRAVASTATIN SODIUM 20 MG TABLET 40 MG PO ×2 (00:23→21:24)
[2019-11-05 01:10] LABS: Hematocrit 32.2 % (37.0-47.0); Hemoglobin 10.2 g/dL (12.0-15.0)
[2019-11-05 01:26] LABS: Blood Urea Nitrogen 97 mg/dL (7-17); Calcium 8.7 mg/dL (8.4-10.2); Carbon Dioxide 21 mmol/L (22-30); Chloride 102 mmol/L (98-107); Estimated CRCL calculation 16 ml/min; Estimated Glomerular Filt Rate 18; Glucose 83 mg/dL (65-105); Potassium 5.5 mmol/L (3.4-5.0); Sodium 136 mmol/L (137-145)
[2019-11-05] MEDS: SODIUM BICARBONATE 8.4% 50 MEQ/50 ML VIAL IV PUSH (02:24)
[2019-11-05 05:37] LABS: Basophils Percent Auto 0.4 % (0.2-1.2); Eosinophils Absolute Auto 0.2 K/mm3 (0-0.3); Eosinophils Percent Auto 2.9 % (0-4.4); Hematocrit 30.3 % (37.0-47.0); Hemoglobin 9.9 g/dL (12.0-15.0); Immature Granulocyte Absolute 0.03 K/mm3 (0.00-0.031); Immature Granulocyte Percent A 0.4 % (0-0.5); Lymphocytes Absolute Auto 1.72 K/mm3 (0.9-3.2); Lymphocytes Percent Auto 23.7 % (18.3-44.2); Mean Corpuscular HGB Conc 32.7 g/dl (32-36); Mean Corpuscular Hemoglobin 28.7 pg (26-34); Mean Corpuscular Volume 87.8 fl (80-100); Mean Platelet Volume 11.8 fl (7.4-10.4); Monocytes Absolute Auto 0.6 K/mm3 (0.1-0.6); Monocytes Percent Auto 8.4 % (2.6-8.5); Neutrophils Absolute Auto 4.7 K/mm3 (1.3-6.7); Neutrophils Percent Auto 64.2 % (45.5-73.1); Platelet Count Result 191 k/mm3 (150-375); Red Blood Count 3.45 M/mm3 (4.2-5.4); Red Cell Distribution Width 14.1 % (11.5-14.5); White Blood Count 7.3 K/mm3 (4.5-10.0)
[2019-11-05 05:45] LABS: INR 3.2; Prothrombin Time 32.1 Seconds (11.1-14.7)
[2019-11-05 05:46] LABS: Partial Thromboplastin Time 54.7 SECONDS (22.3-36.8)
[2019-11-05 05:47] LABS: Alanine Aminotransferase 21 U/L (4-35); Albumin Level 3.3 g/dL (3.5-5.1); Alkaline Phosphatase 62 U/L (38-126); Aspartate Amino Transferase 22 U/L (14-36); Bilirubin,Total 0.2 mg/dL (0.2-1.3); Blood Urea Nitrogen 100 mg/dL (7-17); Calcium 8.6 mg/dL (8.4-10.2); Carbon Dioxide 23 mmol/L (22-30); Chloride 103 mmol/L (98-107); Estimated CRCL calculation 17 ml/min; Estimated Glomerular Filt Rate 20; Glucose 87 mg/dL (65-105); Potassium 5.4 mmol/L (3.4-5.0); Sodium 136 mmol/L (137-145)
[2019-11-05 08:50] LABS: Hematocrit 31.7 % (37.0-47.0); Hemoglobin 10.2 g/dL (12.0-15.0)
[2019-11-05] MEDS: PANTOPRAZOLE SODIUM IV 40 MG VIAL IV PUSH ×2 (09:06→21:24)
[2019-11-05] MEDS: SERTRALINE HCL 50 MG TABLET PO (09:06)
--- NOTE | 2019-11-05 10:32 | PM.IMPN ---
Progress Note: A&P Assessment and Plan (1) GI bleed: Code(s): K92.2 - Gastrointestinal hemorrhage, unspecified Status: Acute Assessment and Plan: Reports 1 episode of hematemesis in last 3 days; melena last night; no BMs today. No other signs of bleeding at this moment. Epistaxis appears to have resolved as well. INR 3.2 today; still supratherapeutic. Dr. Adams has been consulted and his input is appreciated. H&H is stable. Should she continue to bleed, would consider IVC filter. At this moment, bleeding appears to have stopped but still supratherapeutic. Will consider resuming on lower dose of warfarin and monitor for now. Will await GI recommendations Will stop Lovenox Monitor for now Consider Surgery consult should IVF filter be considered (2) Normocytic anemia: Code(s): D64.9 - Anemia, unspecified Status: Acute Assessment and Plan: Likely related to epistaxis, hematemesis, melena. Check iron studies. Trend hemoglobin and hematocrit. (3) Anticoagulated on warfarin: Code(s): Z79.01 - exterminator termite (current) use of anticoagulants Status: Inactive Assessment and Plan: INR supratherapeutic at 3.2 As above, warfarin is on hold. Stop Lovenox shots. Will likely resume Warfarin at lowered dose once okay from GI standpoint (4) Chronic kidney disease, stage 3: Code(s): N18.3 - Chronic kidney disease, stage 3 (moderate) Status: Acute Assessment and Plan: Patient was told recently that she has stage 3 kidney disease. Patient's daughter in law states her Cr ranges from 1.80-2.30. Cr 2.30 today; BUN markedly elevated at 100 possibly also in part from bleed Will continue to hold furosemide and lisinopril for now Repeat renal function in a.m. Nephrology has been consulted and appreciate input (5) Hyperkalemia: Code(s): E87.5 - Hyperkalemia Status: Acute Assessment and Plan: K is 5.4 today; slightly down trending. No Cp/palpitations Hold Lasix and lisinopril and potassium supplementation. Trend K tomorrow (6) Tobacco dependence: Code(s): F17.200 - Nicotine dependence, unspecified, uncomplicated Status: Acute Assessment and Plan: Smoking cessation will be essential (7) Hypertension: Code(s): I10 - Essential (primary) hypertension Status: Acute Assessment and Plan: Blood pressures were reviewed and they are not at goal, as high as 197/71. BP 150s sys today. As her lisinopril and furosemide are on hold given worsening renal function, will need to monitor closely. P.r.n. hydralazine with parameters Subjective Date/time seen: 11/05/19 10:32 Interval history: Patient is a 84 yo F with history of hypertension, hyperlipidemia, and recent diagnosis of lower extremity DVT for which she was started on warfarin and Lovenox who is here for treatment of likely GI bleed in setting of supratherapeutic INR with warfarin therapy for DVT, as well as, CKDIII/azotemia.. Patient states she feel overall well today. She has not noted any bloody noses/hemetemesis since being admitted. Daughter in-law in room tells me she was initially on 5 mg warfarin daily, but was found to be subtherapeutic and this dose was increased recently to 7.5 mg daily. Patient has no other complaints at the moment. Denies f/c/ns, headaches, dizziness, lightheadedness, acute changes in v/h, cp/palpitations, sob/cough, n/v/d/c, abd pain, dysphagia, melena, brbpr, dysuria, hematuria, cloudy urine, calf pain/swelling, s/sx of stroke Review of Systems Review of Systems: All systems reviewed & are unremarkable except as noted in HPI and below Exam Narrative: Exam Narrative: Randi
--- NOTE | 2019-11-05 11:51 | PM.CNNEP ---
Assessment and Plan Assessment and plan (1) Chronic kidney disease, stage 3: Code(s): N18.3 - Chronic kidney disease, stage 3 (moderate) Status: Acute (2) Azotemia: Code(s): R79.89 - Other specified abnormal findings of blood chemistry Status: Acute (3) Hyperkalemia: Code(s): E87.5 - Hyperkalemia Status: Acute (4) GI bleed: Code(s): K92.2 - Gastrointestinal hemorrhage, unspecified Status: Acute Assessment and Plan: . Additional Plan Tamar has chronic kidney disease that is well established by her primary manager servicing. She reports that she has chronic kidney disease stage 3 although her labs here [facility] with suggested her kidney that her renal function is more closer to chronic kidney disease stage 4. However, given that her baseline creatinine normally from fluctuates anywhere from 1.8-2.3 mg/dL, I suspect that her renal function fluctuates between stage III and stage IV CKD. I suspect her elevated BUN/azotemia is more secondary to her overt GI bleed that it is to worsening renal function. I suspect as her GI bleed resolves, her BUN will stabilize as well. I am somewhat surprised that her creatinine is as stable as it is given her GI bleed but I would not be surprised if it fluctuates further during this hospital stay given her acute medical issues. As already mentioned, her hemoglobin hematocrit is relatively stable but we will follow the trend of these parameters and consider packed red blood cell transfusion and has already mentioned, GI is following the patient already with a tentative plan for an EGD once her INR drops. I do not think any further evaluation is needed with regard to her kidney disease since it is an established diagnosis and she follows with outpatient nephrology. As I mentioned, I would follow the trend of her BUN and creatinine during this hospital stay as it is likely to fluctuate further until her GI bleed resolves. I will continue follow patient with you while she remains hospitalized to make further recommendations during her hospital course. Thank you for allowing me participate in the care this patient. History of Present Illness Reason for Consult Consult date: 11/05/19 Reason for consult: chronic renal failure Chief Complaint Chief complaint: GI bleed. History of Present Illness Narrative: The patient is a 84-year-old female with a past medical history as outlined below who was tranferred from the emergency department at [facility] to [facility] for further evaluation of a suspected GI bleed. She was just recently diagnosed with a DVT and started on Lovenox and coumadin with outpatient monitoring of her INR. She e presented [facility] due to episodes of epistaxis and emesis. She reportedly had 1 dark stool on the day of admission and questionable hematemesis and had been feeling well otherwise despite the bleeding. She was transferred to [facility] for GI consultulation given the hematemesis and melena as well as guaiac positive stools. She has no other complaints with regard to chest pain, shortness of breath, abdominal pain or any further nausea or vomiting. Since admission, it has been discover that her INR was supratherapeutic and anticoagulation is currently on hold. Her hemoglobin hematocrit have been relatively stable and she was seen by Gastroenterology who recommended EGD will not do so until her INR drifts down closer to the normal range. She has otherwise been hemodynamically stable and in no apparent distress. Renal consultation was requested due to her known history of chronic kidney disease. The patient normally follows with Dr. Juancho Barrera for CKD management in from review of her records as well as discussion with the patient pre kidney disease has been fairly stable and she states that she was classified as ?chronic kidney disease stage 3 with jef morales
[2019-11-05 13:31] LABS: Hematocrit 33.6 % (37.0-47.0)
--- NOTE | 2019-11-05 16:37 | WPDGICN ---
Assessment and Plan Assessment and plan (1) GI bleed: Qualifiers: GI bleed type/associated pathology: melena Qualified Code(s): K92.1 - Melena Code(s): K92.2 - Gastrointestinal hemorrhage, unspecified Status: Acute Assessment and Plan: upper GIB in setting of recent anticoagulation, keep holding AC for now. once inr ~ 1.8 then we can proceed with EGD, unsure if we can be ready tomorrow (just in case will order npo after midnight) ppi bid and monitor hb (2) Normocytic anemia: Code(s): D64.9 - Anemia, unspecified Status: Acute (3) Acute deep vein thrombosis (DVT) of popliteal vein of left lower extremity: Code(s): I82.432 - Acute embolism and thrombosis of left popliteal vein Status: Acute Assessment and Plan: holding anticoagulation for now in setting of bleeding. (4) On warfarin therapy: Code(s): Z79.01 - intermission coordinator (current) use of anticoagulants Status: Acute GI Consult Note Consult date/time: 11/05/19 16:37 Reason for consult: melena HPI: Tamar Bob is a 84 year old female with history of hypertension, diastolic HF, hyperlipidemia, and recent diagnosis of lower extremity DVT 10/31/19 for which she was started on warfarin and Lovenox and [facility] the emergency department at [facility] for further evaluation of GI bleeding. She had new onset of epigastric discomfort with emesis of dark material but also noted epistaxis since she was started on anticoagulation. Then had one dark tarry stool therefore she went to ER. Hb stable 11, inr 3. Never had EGD, she feels ok now, no more bleeding and hemodynamically stable. She never had a colonoscopy and daughter who is a nurse says that she always refused to get one. She also is taking aspirin. Review of Systems Constitutional: Constitutional: Denies headache(s) and Denies weakness Eyes: Eyes: Denies blurry vision ENT: Reports Normal hearing present, Denies headache(s), Reports epistaxis and Denies neck pain Cardiovascular: Cardiovascular: Denies chest pain and Denies dyspnea Respiratory: Respiratory: Denies dyspnea Gastrointestinal: Gastrointestinal: Reports no additional gastrointestinal complaints Genitourinary: Genitourinary: Denies dysuria Musculoskeletal: Musculoskeletal: Denies neck pain Integumentary/Breasts: Skin/Breast: Denies dry skin Neurologic: Reports Normal hearing present, Denies headache(s) and Denies weakness Psychiatric: Psychiatric: Denies anxiety Endocrine: Endocrine: Denies change in body appearance Hematologic/Lymphatic: Comments: started on blood thinners Allergic/Immunologic: Allergic/Immunologic: Denies urticaria PMFSH Past Medical History Medical History (Updated 11/05/19 @ 16:43 by Serg Heller MD) Chronic kidney disease, stage 3 She is followed by Dr[address] Jaylen Barrera at [facility] and was told recently that she is at stage III. Creatinine has ranged from 1.91 to 2.62 in the last several months. Generalized osteoarthritis GERD (gastroesophageal reflux disease) History of COPD Hyperlipidemia Hypertension Major depression, recurrent On warfarin therapy Osteoporosis Pulmonary nodule Tobacco dependence Surgical History Surgical History H/O vein stripping History of appendectomy History of cholecystectomy Family History Family History Mother Hypertension Breast cancer Sister Asthma Hypertension Father , at age 36 No problems noted. Social History Social History (Updated 11/04/19 @ 23:33 by Jessie Benavides PA-C) Social History: The patient lives in her own home in [place]. She has smoked 1 pack of cigarettes per day at least for the last 50 years. She has 6 children. She designates her daughter Lisa and [id number] Shiloh as h
[2019-11-06] VITALS (9 sets, daily range): BP systolic 150–182; BP diastolic 38–61; PULSE 45–76; RESP 18–20; TEMP 36.3–36.8; O2SAT 96–99
[2019-11-06 05:21] LABS: INR 2.9; Prothrombin Time 29.9 Seconds (11.1-14.7)
[2019-11-06 05:34] LABS: Transferrin 207 mg/dL (206-381)
[2019-11-06 05:37] LABS: Blood Urea Nitrogen 87 mg/dL (7-17); Calcium 8.7 mg/dL (8.4-10.2); Carbon Dioxide 21 mmol/L (22-30); Chloride 101 mmol/L (98-107); Estimated CRCL calculation 15 ml/min; Estimated Glomerular Filt Rate 18; Glucose 93 mg/dL (65-105); Potassium 5.2 mmol/L (3.4-5.0); Sodium 135 mmol/L (137-145)
[2019-11-06 06:29] LABS: Iron 41 ug/dL (37-170)
[2019-11-06 06:38] LABS: Percent Iron Saturation 14 % (20-50)
[2019-11-06 07:26] LABS: Hematocrit 32.5 % (37.0-47.0); Hemoglobin 10.4 g/dL (12.0-15.0); Mean Corpuscular Hemoglobin 28.4 pg (26-34); Mean Corpuscular Volume 88.8 fl (80-100); Mean Platelet Volume 12.3 fl (7.4-10.4); Platelet Count Result 194 k/mm3 (150-375); Red Blood Count 3.66 M/mm3 (4.2-5.4); Red Cell Distribution Width 14.1 % (11.5-14.5); White Blood Count 8.8 K/mm3 (4.5-10.0)
[2019-11-06] MEDS: PANTOPRAZOLE SODIUM IV 40 MG VIAL IV PUSH ×2 (08:26→20:52)
[2019-11-06] MEDS: SERTRALINE HCL 50 MG TABLET PO (08:26)
--- NOTE | 2019-11-06 12:41 | PM.IMPN ---
Progress Note: A&P Assessment and Plan (1) GI bleed: Qualifiers: GI bleed type/associated pathology: melena Qualified Code(s): K92.1 - Melena Code(s): K92.2 - Gastrointestinal hemorrhage, unspecified Status: Acute Assessment and Plan: Reports 1 episode of hematemesis in 3 days prior to arrival; reported dark stools last night. No other signs of bleeding at this moment. Epistaxis appears to have resolved as well. INR 2.[address] Adams has been consulted and his input is appreciated; awaiting INR to be ~1.8 for possible EGD. H&H is stable. Should she continue to bleed, would consider IVC filter. At this moment, bleeding appears to have ceased. Will consider resuming on lower dose of warfarin and monitor for now. Will await possible EGD Will stop Lovenox Monitor for now Consider Surgery consult should IVF filter be considered (2) Normocytic anemia: Code(s): D64.9 - Anemia, unspecified Status: Acute Assessment and Plan: Likely related to epistaxis, hematemesis, melena. Iron low normal today, ferritin elevated. IV venofer today Consider PO iron daily Trend hemoglobin and hematocrit. 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 Stop Lovenox shots. Will likely resume Warfarin at lowered dose once okay from GI standpoint (4) Chronic kidney disease, stage 3: Code(s): N18.3 - Chronic kidney disease, stage 3 (moderate) Status: Acute Assessment and Plan: Patient was told recently that she has stage 3 kidney disease. Patient's daughter in law states her Cr ranges from 1.80-2.30. Cr 2.60 today; BUN 87 today, likely also in part from bleed. Will continue to hold furosemide and lisinopril for now Repeat renal function in a.m. Nephrology has been consulted and appreciate input (5) Hyperkalemia: Code(s): E87.5 - Hyperkalemia Status: Acute Assessment and Plan: K is 5.2 today; slightly down trending. No Cp/palpitations Hold Lasix and lisinopril and potassium supplementation. Trend K tomorrow (6) Tobacco dependence: Code(s): F17.200 - Nicotine dependence, unspecified, uncomplicated Status: Acute Assessment and Plan: Smoking cessation will be essential (7) Hypertension: Code(s): I10 - Essential (primary) hypertension Status: Acute Assessment and Plan: Blood pressures were reviewed and they are not at goal, as high as 197/71. BP 180s sys today. As her lisinopril and furosemide are on hold given worsening renal function, will need to monitor closely. P.r.n. hydralazine with parameters Subjective Date/time seen: 11/06/19 12:41 Interval history: Patient is a 84 yo F with history of hypertension, hyperlipidemia, and recent diagnosis of lower extremity DVT for which she was started on warfarin and Lovenox who is here for treatment of likely GI bleed in setting of supratherapeutic INR with warfarin therapy for DVT, as well as, CKDIII/azotemia and hyperkalemia. Patient states she feel overall well again today. She has not noted any bloody noses/hemetemesis since being admitted. She does report diarrhea last night with dark stools, but states this is better than it has been. Patient has no other complaints at the moment. Denies f/c/ns, headaches, dizziness, lightheadedness, acute changes in v/h, cp/palpitations, sob/cough, n/v, abd pain, dysphagia, brbpr, dysuria, hematuria, cloudy urine, calf pain/swelling, s/sx of stroke Review of Systems Review of Systems: All systems reviewed & are unremark
--- NOTE | 2019-11-06 13:13 | WPDGIPROGNO ---
Progress Note: A&P Assessment and Plan (1) GI bleed: Qualifiers: GI bleed type/associated pathology: melena Qualified Code(s): K92.1 - Melena Code(s): K92.2 - Gastrointestinal hemorrhage, unspecified Status: Acute Assessment and Plan: hb stable, will await on INR tomorrow and probably proceed with EGD keep holding blood thinners for now npo after midnight (2) Melena: Code(s): K92.1 - Melena Status: Acute (3) Chronic kidney disease, stage 3: Code(s): N18.3 - Chronic kidney disease, stage 3 (moderate) Status: Acute Assessment and Plan: by primary team (4) On warfarin therapy: Code(s): Z79.01 - correction (current) use of anticoagulants Status: Acute Subjective Date/time seen: 11/06/19 13:13 Interval history: no new issues, denies pain and she has good appetite, last BM was dark. INR 2.9 therefore no EGD today. Review of Systems Review of Systems: All systems reviewed & are unremarkable except as noted in HPI and below Exam Const: General: comfortable and no acute distress HENMT: General nose exam: Normal nares present Eyes: General: appearance normal, both eyes and all related structures Neck: Neck: no JVD Resp: Auscultation: clear to auscultation bilaterally Cardio: Rate: regular rate Rhythm: regular rhythm GI: Inspection: non-distended GI Palp: Yes Soft to palpation Skin: General skin exam: normal color Neuro: General: gait normal Speech: normal speech Extrem: General: normal to inspection Psych: Mental Status: mental status grossly normal Objective Data Vital Signs Vital Signs: Vital Signs - 24 hr 11/05/19 13:29 11/05/19 14:00 11/05/19 16:00 Temperature 97.4 F L Pulse Rate 43 L 49 L 47 L Respiratory Rate 20 18 Blood Pressure 152/83 H Pulse Oximetry 98 98 11/05/19 18:00 11/05/19 18:18 11/05/19 20:00 Temperature 98.0 F 97.8 F Pulse Rate 51 L 47 L 52 L Respiratory Rate 18 20 Blood Pressure 152/31 H 149/34 H Pulse Oximetry 98 98 11/05/19 22:00 11/06/19 00:00 11/06/19 02:00 Temperature 97.8 F Pulse Rate 52 L 66 52 L Respiratory Rate 18 Blood Pressure 181/45 H Pulse Oximetry 97 11/06/19 04:00 11/06/19 05:52 11/06/19 08:00 Temperature 98.0 F 98.2 F Pulse Rate 64 64 64 Respiratory Rate 20 20 Blood Pressure 166/38 H 182/50 H Pulse Oximetry 97 99 11/06/19 10:00 Temperature Pulse Rate 50 L Respiratory Rate Blood Pressure Pulse Oximetry Intake/Output Intake/Output: Intake & Output 11/03/19 11/04/19 11/05/19 11/06/19 23:59 23:59 23:59 23:59 Intake Total 240 1750 300 Output Total 400 350 200 Balance -160 1400 100 Meds/Results Medications: Active Medications Generic Name Dose Route Start Last Admin Trade Name Freq PRN Reason Stop Dose Admin Albuterol 1 puff 11/04/19 23:42 Proventil Hfa INHALATION QID PRN shortness of breath or wheezing Hydralazine HCl 10 mg 11/04/19 23:42 Apresoline Hcl Inj IV PUSH Q6H PRN SBP > 165 or DBP > 105 Pantoprazole Sodium 40 mg 11/05/19 09:00 11/06/19 08:26 Protonix Iv IV PUSH 40 mg Q12HR JUAN Administration Pravastatin Sodium 40 mg 11/04/19 23:50 11/05/19 21:24 Pravastatin Sodium PO 40 mg HS JUAN Administration Sertraline HCl 50 mg 11/05/19 09:00 11/06/19 08:26 Zoloft PO 50 mg DAILY JUAN Administration Labs Labs: Laboratory Results - last 24 hr 11/05/19 11/06/19 11/06/19 13:18 04:29 04:29 WBC RBC Hgb 11.0 L Hct 33.6 L MCV MCH MCHC RDW Plt Count MPV PT INR Sodium 135 L Potassium 5.2 H Chloride 101 Carbon Dioxide 21 L BUN 87 H D Creatinine 2.60 H Estim Creat Clear Calc 15 Estimated GFR 18 L Glucose 93 Calcium 8.7 Iron 41 TIBC 300 % Saturation 14 L Transferrin 207 Ferritin 100.00 11/06/19 11/06/19 04:29 04:29 WBC 8.8 RBC 3.66
--- NOTE | 2019-11-06 14:13 | PM.PNNEP ---
Progress Note: A&P Assessment and Plan (1) Chronic kidney disease, stage 3: Code(s): N18.3 - Chronic kidney disease, stage 3 (moderate) Status: Chronic Assessment and Plan: creatinine relatively stable GFR more suggestive of CKD stage 4 but aware her creatinine fluctuates ~ 1.8 - 2.3mg/dl no critical elecrolytes and volume stable continue supportive therapy (2) Azotemia: Code(s): R79.89 - Other specified abnormal findings of blood chemistry Status: Acute Assessment and Plan: suspect secondary to GI bleed stable in not improving follow trend (3) Hyperkalemia: Code(s): E87.5 - Hyperkalemia Status: Acute Assessment and Plan: 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 Subjective Date/time seen: 11/06/19 14:13 States she feels okay and denies any acute complaints (other she is tired of being in the hospital); no events or issues overnight or earlier this AM; no apparent distress noted. Exam Narrative: Exam Narrative: General: WD/WN female in NAD Heart: normal S1 and S2; no rub Lungs: clear to auscultation Abdomen: soft, nontender, nondistended, positive bowel sounds Extremities: no cyanosis or clubbing; no edema Skin: warm and dry Objective Data Vital Signs Vital Signs: Vital Signs Temp Pulse Resp BP Pulse Ox 11/06/19 12:00 45 L 11/06/19 10:00 50 L 11/06/19 08:00 36.8 C 64 20 182/50 H 99 11/06/19 05:52 64 11/06/19 04:00 36.7 C 64 20 166/38 H 97 11/06/19 02:00 52 L 11/06/19 00:00 36.6 C 66 18 181/45 H 97 11/05/19 22:00 52 L 11/05/19 20:00 36.6 C 52 L 20 149/34 H 98 11/05/19 18:18 36.7 C 47 L 18 152/31 H 98 11/05/19 18:00 51 L 11/05/19 16:00 47 L 18 98 Intake/Output Intake/Output: Intake & Output 11/03/19 11/04/19 11/05/19 11/06/19 23:59 23:59 23:59 23:59 Intake Total 240 1750 300 Output Total 400 350 200 Balance -160 1400 100 Meds/Results Medications: Active Medications Generic Name Dose Route Start Last Admin Trade Name Freq PRN Reason Stop Dose Admin Albuterol 1 puff 11/04/19 23:42 Proventil Hfa INHALATION QID PRN shortness of breath or wheezing Hydralazine HCl 10 mg 11/04/19 23:42 Apresoline Hcl Inj IV PUSH Q6H PRN SBP > 165 or DBP > 105 Pantoprazole Sodium 40 mg 11/05/19 09:00 11/06/19 08:26 Protonix Iv IV PUSH 40 mg Q12HR JUAN Administration Pravastatin Sodium 40 mg 11/04/19 23:50 11/05/19 21:24 Pravastatin Sodium PO 40 mg HS JUAN Administration Sertraline HCl 50 mg 11/05/19 09:00 11/06/19 08:26 Zoloft PO 50 mg DAILY JUAN Administration Labs Labs: Laboratory Tests 11/06/19 04:29 11/06/19 04:29
[2019-11-06 20:38] LABS: Glucose Point of Care 124 (65-105)
[2019-11-06] MEDS: PRAVASTATIN SODIUM 20 MG TABLET 40 MG PO (20:52)
[2019-11-07 04:41] VITALS: BP 106/49; PULSE 50; RESP 22; TEMP 36.8; O2SAT 98
[2019-11-07 05:08] LABS: Hematocrit 30.2 % (37.0-47.0); Hemoglobin 9.7 g/dL (12.0-15.0); Mean Corpuscular HGB Conc 32.1 g/dl (32-36); Mean Corpuscular Volume 90.1 fl (80-100); Platelet Count Result 169 k/mm3 (150-375); Red Blood Count 3.35 M/mm3 (4.2-5.4); Red Cell Distribution Width 14.1 % (11.5-14.5); White Blood Count 8.5 K/mm3 (4.5-10.0)
[2019-11-07 05:27] LABS: INR 2.7; Prothrombin Time 27.8 Seconds (11.1-14.7)
[2019-11-07 05:34] LABS: Blood Urea Nitrogen 80 mg/dL (7-17); Calcium 8.5 mg/dL (8.4-10.2); Carbon Dioxide 21 mmol/L (22-30); Chloride 103 mmol/L (98-107); Estimated CRCL calculation 16 ml/min; Estimated Glomerular Filt Rate 18; Glucose 95 mg/dL (65-105); Magnesium 2.1 mg/dL (1.6-2.3); Potassium 5.2 mmol/L (3.4-5.0); Sodium 138 mmol/L (137-145)
[2019-11-07 08:00] VITALS: BP 149/40; PULSE 58; RESP 18; TEMP 36.4; O2SAT 95
[2019-11-07] MEDS: PANTOPRAZOLE SODIUM IV 40 MG VIAL IV PUSH (08:26)
[2019-11-07] MEDS: SERTRALINE HCL 50 MG TABLET PO (08:26)
[2019-11-07 12:17] VITALS: BP 135/37; PULSE 59; RESP 20; TEMP 36.5; O2SAT 96
--- NOTE | 2019-11-07 13:10 | PM.IMPN ---
Progress Note: A&P Assessment and Plan (1) GI bleed: Qualifiers: GI bleed type/associated pathology: melena Qualified Code(s): K92.1 - Melena Code(s): K92.2 - Gastrointestinal hemorrhage, unspecified Status: Acute Assessment and Plan: Reports 1 episode of hematemesis in 3 days prior to arrival. 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 Epistaxis today, resolved. INR 2.[address] Adams has been consulted and his input is appreciated; awaiting INR to be ~1.8 for possible EGD. H&H is stable at 9.7 today. Should she continue to show signs of acute blood loss, would consider IVC filter. At this moment, bleeding overt GI bleeding appears to have ceased. Will consider resuming on lower dose of warfarin and monitor for now once okay with GI. Will await possible EGD once INR is around 1.8 Will stop Lovenox Monitor for now Consider Surgery consult should IVF filter be considered (2) Normocytic anemia: Code(s): D64.9 - Anemia, unspecified Status: Acute Assessment and Plan: Likely related to epistaxis, hematemesis, melena. Iron low normal today, ferritin normal IV venofer earlier in stay PO iron daily for now Trend hemoglobin and hematocrit. 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 Stop Lovenox shots. Will likely resume Warfarin at lowered dose once okay from GI standpoint (4) Chronic kidney disease, stage 3: Code(s): N18.3 - Chronic kidney disease, stage 3 (moderate) Status: Chronic Assessment and Plan: Patient was told recently that she has stage 3 kidney disease. Patient's daughter in law states her Cr ranges from 1.80-2.30. Cr 2.50 today; BUN 80 today, likely also in part from bleed. Will continue to hold furosemide and lisinopril for now Repeat renal function in a.m. Nephrology has been consulted and appreciate input (5) Hyperkalemia: Code(s): E87.5 - Hyperkalemia Status: Acute Assessment and Plan: K is 5.2 today; stable. No Cp/palpitations Hold Lasix and lisinopril and potassium supplementation. Trend K tomorrow (6) Tobacco dependence: Code(s): F17.200 - Nicotine dependence, unspecified, uncomplicated Status: Acute Assessment and Plan: Smoking cessation will be essential (7) Hypertension: Code(s): I10 - Essential (primary) hypertension Status: Acute Assessment and Plan: Blood pressures were reviewed and they are not at goal, as high as 197/71. BP 130s sys today. As her lisinopril and furosemide are on hold given worsening renal function, will need to monitor closely. P.r.n. hydralazine with parameters Subjective Date/time seen: 11/07/19 13:10 Interval history: Patient is a 84 yo F with history of hypertension, hyperlipidemia, and recent diagnosis of lower extremity DVT for which she was started on warfarin and Lovenox who is here for treatment of likely GI bleed in setting of supratherapeutic INR with warfarin therapy for DVT, as well as, CKDIII/azotemia and hyperkalemia. Patient states she feels overall well again today. She noted a light bloody nose today, which has subsided, but no hemetemesis since being admitted. 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 Patient has no other complaints at the moment. Denies f/c/ns, headaches, dizziness, lightheadedness, acute changes in v/h, cp/palpitations, sob/cough, n/v, abd pain, dysphagia, melena, brbpr, dysuria, hematuria, cloudy urine, calf pain/swelling, s/sx of stroke Review of S
--- NOTE | 2019-11-07 15:12 | PM.PNNEP ---
Progress Note: A&P Assessment and Plan (1) Chronic kidney disease, stage 3: Code(s): N18.3 - Chronic kidney disease, stage 3 (moderate) Status: Chronic Assessment and Plan: creatinine relatively stable GFR more suggestive of CKD stage 4 but aware her creatinine fluctuates ~ 1.8 - 2.3mg/dl no critical elecrolytes and volume stable continue supportive therapy (2) Azotemia: Code(s): R79.89 - Other specified abnormal findings of blood chemistry Status: Acute Assessment and Plan: suspect secondary to GI bleed stable in not improving follow trend (3) Hyperkalemia: Code(s): E87.5 - Hyperkalemia Status: Acute Assessment and Plan: 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 Subjective Date/time seen: 11/07/19 15:12 No new issues or problems voiced at this time; no events overnight or this AM; feels reasonably well; H/H relatively stable but INR still elevated so plan of EGD still on hold. Exam Narrative: Exam Narrative: General: WD/WN female in NAD Heart: normal S1 and S2; no rub Lungs: clear to auscultation Abdomen: soft, nontender, nondistended, positive bowel sounds Extremities: no cyanosis or clubbing; no edema Skin: warm and intact Objective Data Vital Signs Vital Signs: Vital Signs Temp Pulse Resp BP Pulse Ox 11/07/19 12:17 36.5 C 59 L 20 135/37 L 96 11/07/19 08:00 36.4 C L 58 L 18 149/40 H 95 11/07/19 04:41 36.8 C 50 L 22 H 106/49 L 98 11/06/19 20:00 36.6 C 53 L 20 162/61 H 97 11/06/19 17:30 36.6 C 62 18 155/44 H 96 Intake/Output Intake/Output: Intake & Output 11/04/19 11/05/19 11/06/19 11/07/19 23:59 23:59 23:59 23:59 Intake Total 240 1750 1735 690 Output Total 176 024 7782 800 Balance -160 1400 535 -110 Meds/Results Medications: Active Medications Generic Name Dose Route Start Last Admin Trade Name Freq PRN Reason Stop Dose Admin Albuterol 1 puff 11/04/19 23:42 Proventil Hfa INHALATION QID PRN shortness of breath or wheezing Ferrous Sulfate 324 mg 11/08/19 09:00 Ferrous Sulfate PO DAILY JUAN Hydralazine HCl 10 mg 11/04/19 23:42 Apresoline Hcl Inj IV PUSH Q6H PRN SBP > 165 or DBP > 105 Pantoprazole Sodium 40 mg 11/05/19 09:00 11/07/19 08:26 Protonix Iv IV PUSH 40 mg Q12HR JUAN Administration Pravastatin Sodium 40 mg 11/04/19 23:50 11/06/19 20:52 Pravastatin Sodium PO 40 mg HS JUAN Administration Sertraline HCl 50 mg 11/05/19 09:00 11/07/19 08:26 Zoloft PO 50 mg DAILY JUAN Administration Sodium Chloride 1 spray 11/07/19 13:08 [place] Nasal [place] NASAL Q6HR PRN Dry Nasal Passages Labs Labs: Laboratory Tests 11/07/19 04:42 11/07/19 04:42
--- NOTE | 2019-11-07 15:22 | PM.DS ---
DS: Diagnosis Admitting Diagnosis Admitting Diagnosis: Gastrointestinal hemorrhage, unspecified Discharge Diagnosis (1) GI bleed: Qualifiers: GI bleed type/associated pathology: melena Qualified Code(s): K92.1 - Melena Code(s): K92.2 - Gastrointestinal hemorrhage, unspecified Status: Acute Assessment and Plan: Reports 1 episode of hematemesis in 3 days prior to arrival. 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 Epistaxis today, resolved. INR 2.[address] Adams has been consulted and his input is appreciated. Spoke with Dr. Adams and he recommends discharging today while holding Warfarin over the weekend and to plan to do EGD on Saturday 11/11; he will make arrangements for the procedure. Spoke with patient and family and they are agreeable and comfortable with plan. Spoke with Dr. Cohen, her PCP, and he will be following INR tomorrow and Monday, prior to her procedure. Plan will be to discharge today INR to be drawn by home health tomorrow and on Monday Should she drop to subtherapeutic tomorrow, daughter in law understood instructions to notify the PCP and potentially resume Lovenox injections until 24 hours prior to the EGD. PCP agreeable with this plan as well. Hold Lovenox unless subtherapeutic INR tomorrow (2) Normocytic anemia: Code(s): D64.9 - Anemia, unspecified Status: Acute Assessment and Plan: Likely related to epistaxis, hematemesis, melena. Iron low normal today, ferritin normal IV venofer earlier in stay (3) Anticoagulated on warfarin: Code(s): Z79.01 - snf (current) use of anticoagulants Status: Inactive Assessment and Plan: INR 2.7 today As above, warfarin is on hold. Hold Lovenox injections unless subtherapeutic >24 hours prior to EGD PCP to resume and manage warfarin once EGD is performed and cleared from GI standpoint (4) Chronic kidney disease, stage 3: Code(s): N18.3 - Chronic kidney disease, stage 3 (moderate) Status: Chronic Assessment and Plan: Patient was told recently that she has stage 3 kidney disease. Patient's daughter in law states her Cr ranges from 1.80-2.30. Cr 2.50 today; BUN 80 today, likely also in part from bleed. Will continue to hold furosemide and lisinopril for now Repeat renal function tomorrow, as well Nephrology has been consulted and appreciate input (5) Hyperkalemia: Code(s): E87.5 - Hyperkalemia Status: Acute Assessment and Plan: K is 5.2 today; stable. No Cp/palpitations Hold Lasix and lisinopril and potassium supplementation. Trend K tomorrow (6) Tobacco dependence: Code(s): F17.200 - Nicotine dependence, unspecified, uncomplicated Status: Acute Assessment and Plan: Smoking cessation will be essential (7) Hypertension: Code(s): I10 - Essential (primary) hypertension Status: Acute Assessment and Plan: Blood pressures were reviewed and they are not at goal, as high as 197/71. BP 130s sys today. Will have patient monitor BP daily at discharge and to inform PCP of any changes Hold Lisinopril and furosemide for now given worsened renal function DS: Summary Hospital Course Reason for hospitalization: GI bleed in setting of treatment of DVT with warfarin; supratherapeutic INR Hospital Course: Patient is a 84 yo F with history of hypertension, hyperlipidemia, and recent diagnosis of lower extremity DVT for which she was started on warfarin and bridged with Lovenox who was directly admitted to the hospitalist service from the emergency department at [facility] [place] for further evaluation of GI bleeding on 11/04. She reported to [facility]
--- NOTE | 2019-11-07 15:45 | WPDGIPROGNO ---
Progress Note: A&P Assessment and Plan (1) GI bleed: Qualifiers: GI bleed type/associated pathology: melena Qualified Code(s): K92.1 - Melena Code(s): K92.2 - Gastrointestinal hemorrhage, unspecified Status: Acute Assessment and Plan: hb stable (9.5-10.5) since admission, denies more melena and she is hemodynamically stable. INR is still therapeutic range and can not proceed with egd I talked to daughter who is a nurse, most likely will take 2-3 days before INR gets close to 2 (we did not give her vit K because new diagnosis of DVT). She is agreeable to go home and come back Monday for outpatient EGD so we can proceed without any risks of further bleeding while I am doing the procedure, then if no high risk lesions then she can be back on coumadin again. She already has home health service. 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 INR 2.7 today, daughter is at bedside. Patient is eager to go home if possible Review of Systems Review of Systems: All systems reviewed & are unremarkable except as noted in HPI and below Exam Const: General: comfortable and no acute distress HENMT: General nose exam: Normal nares present Eyes: General: appearance normal, both eyes and all related structures Neck: Neck: no JVD Resp: Auscultation: clear to auscultation bilaterally Cardio: Rate: regular rate Rhythm: regular rhythm GI: Inspection: non-distended GI Palp: Yes Soft to palpation Skin: General skin exam: normal color Neuro: General: gait normal Speech: normal speech Extrem: General: normal to inspection Psych: Mental Status: mental status grossly normal Objective Data Vital Signs Vital Signs: Vital Signs - 24 hr 11/06/19 17:30 11/06/19 20:00 11/07/19 04:41 Temperature 98 F 97.8 F 98.2 F Pulse Rate 62 53 L 50 L Respiratory Rate 18 20 22 H Blood Pressure 155/44 H 162/61 H 106/49 L Pulse Oximetry 96 97 98 11/07/19 08:00 11/07/19 12:17 Temperature 97.5 F L 97.7 F Pulse Rate 58 L 59 L Respiratory Rate 18 20 Blood Pressure 149/40 H 135/37 L Pulse Oximetry 95 96 Intake/Output Intake/Output: Intake & Output 11/04/19 11/05/19 11/06/19 11/07/19 23:59 23:59 23:59 23:59 Intake Total 240 1750 1735 1090 Output Total 219 020 0783 1400 Balance -160 1400 535 -310 Meds/Results Medications: Active Medications Generic Name Dose Route Start Last Admin Trade Name Freq PRN Reason Stop Dose Admin Albuterol 1 puff 11/04/19 23:42 Proventil Hfa INHALATION QID PRN shortness of breath or wheezing Ferrous Sulfate 324 mg 11/08/19 09:00 Ferrous Sulfate PO DAILY JUAN Hydralazine HCl 10 mg 11/04/19 23:42 Apresoline Hcl Inj IV PUSH Q6H PRN SBP > 165 or DBP > 105 Pantoprazole Sodium 40 mg 11/05/19 09:00 11/07/19 08:26 Protonix Iv IV PUSH 40 mg Q12HR JUAN Administration Pravastatin Sodium 40 mg 11/04/19 23:50 11/06/19 20:52 Pravastatin Sodium PO 40 mg HS JUAN Administration Sertraline HCl 50 mg 11/05/19 09:00 11/07/19 08:26 Zoloft PO 50 mg DAILY JUAN Administration Sodium Chloride 1 spray 11/07/19 13:08 [place] Nasal [place] NASAL Q6HR PRN Dry Nasal Passages Labs Labs: Laboratory Results - last 24 hr 11/06/19 11/07/19 11/07/19 20:32 04:42 04:42 WBC 8.5 RBC 3.35 L Hgb 9.7 L Hct 30.2 L MCV 90.1 MCH 29.0 MCHC 32.1 RDW 14.1 Plt Count 169 MPV 12.0 H PT
--- NOTE | 2019-11-07 16:08 | PCPTNOTE ---
The patient treatment was not able to be completed. Will plan to continue treatment per plan of care.
== END 2019-11-07 16:42 | disposition home health service (06) | DRG 378 ==
PROVIDERS: Internal Medicine Gastroenterology; Physician Assistant; Admitting Provider Internal Medicine; PCP Family Medicine; Visit Provider Physician Assistant
DX: K92.1 Melena (principal); I13.0 Hypertensive heart and chronic kidney disease with heart failure and stage 1 through stage 4 chronic kidney disease, or unspecified chronic kidney disease; I50.32 Chronic diastolic (congestive) heart failure; D62 Acute posthemorrhagic anemia; I82.432 Acute embolism and thrombosis of left popliteal vein; K92.0 Hematemesis; R04.0 Epistaxis; R79.1 Abnormal coagulation profile; T45.515A Adverse effect of anticoagulants, initial encounter; N18.3 Chronic kidney disease, stage 3 (moderate); M15.9 Polyosteoarthritis, unspecified; E87.5 Hyperkalemia; K21.9 Gastro-esophageal reflux disease without esophagitis; E78.5 Hyperlipidemia, unspecified; M81.0 Age-related osteoporosis without current pathological fracture; R91.1 Solitary pulmonary nodule; J44.9 Chronic obstructive pulmonary disease, unspecified; F32.9 Major depressive disorder, single episode, unspecified; F17.210 Nicotine dependence, cigarettes, uncomplicated; Z79.01 Long term (current) use of anticoagulants; Z90.49 Acquired absence of other specified parts of digestive tract
CPT/HCPCS: 36415; 80048; 80053; 82728; 83540; 83550; 83735; 84466; 85014; 85018; 85025; 85027; 85610; 85730; 86850; 86900; 86901; 97110; 97161; 97165; A9270; C9113; J1756

== ENCOUNTER 2019-11-12 00:26 | Day surgery (SDC) | payer MEDICARE, SELFPAY ==
[2019-11-12 13:55] VITALS: BP 212/60; PULSE 79; RESP 16; TEMP 36.6; O2SAT 100; BMI 34.2
--- NOTE | 2019-11-12 14:07 | WPDANESEPPF ---
Anes - Initial Pre Proc Eval Procedure: Operation Date: 11/12/19 14:00 Proposed Procedures p Esophagogastroduodenoscopy - Serg Heller MD Date/Time: 11/12/19 14:07 Surgeon: Serg Heller MD Pre Op Diagnosis: Melena Patient Data Age: 84 Gender: F Height: 1.57 m Weight: 84.9 kg Last Vital Signs Temp 36.6 C 11/12/19 13:55 Pulse 79 11/12/19 13:55 Resp 16 11/12/19 13:55 Pulse Ox 100 11/12/19 13:55 Allergies Allergy/AdvReac Type Severity Reaction Status Date / Time No Known Allergies Allergy Mild Verified 11/12/19 13:46 Home Medications Medication Instructions Recorded Confirmed Type sertraline 50 mg tablet 50 mg PO DAILY #90 tablet 09/24/19 11/12/19 Rx albuterol sulfate 1 inhalation INHALATION QID PRN 10/23/19 11/11/19 Rx #90 mcg furosemide 40 mg PO DAILY #30 tablet 10/23/19 11/11/19 Rx aspirin 325 mg PO DAILY 11/04/19 11/11/19 History enoxaparin [Lovenox] 90 mg SUB-Q DAILY 11/04/19 11/11/19 History lisinopril 40 mg PO HS 11/04/19 11/11/19 History pravastatin 40 mg PO HS 11/04/19 11/11/19 History pantoprazole 40 mg PO BID #60 tablet 11/07/19 11/11/19 Rx warfarin [Coumadin] 5 mg PO DAILY 11/11/19 11/11/19 History Patient hx anesthesia problems: none Family hx anesthesia problems: none PMFSH Past Medical History Medical History (Updated 11/06/19 @ 14:14 by Venkata Espinoza MD) Chronic kidney disease, stage 3 She is followed by Dr. Jaylen Barrera at [facility] and was told recently that she is at stage III. Creatinine has ranged from 1.91 to 2.62 in the last several months. Generalized osteoarthritis GERD (gastroesophageal reflux disease) History of COPD Hyperlipidemia Hypertension Major depression, recurrent Melena On warfarin therapy Osteoporosis Pulmonary nodule Tobacco dependence Surgical History Surgical History H/O vein stripping History of appendectomy History of cholecystectomy Social History Social History (Updated 11/04/19 @ 23:33 by Jessie Benavides PA-C) Social History: The patient lives in her own home in [place]. She has smoked 1 pack of cigarettes per day at least for the last 50 years. She has 6 children. She designates her daughter Lisa and [id number] Shiloh as her surrogate decision makers and she wishes to be a full code. Smoking packs per day: 1 Smoking cigarettes per day: 20.0 Years smoked: 70 Smoking pack-years: 70.00 Smoking status: Current every day smoker Tobacco type: cigarettes Second hand tobacco smoke exposure: Yes Alcohol intake: never Drinks per week: 0 Substance use: never Additional living arrangements comments: . 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 Gender identity (if verbalized by the patient): Female Spiritual care concerns: No Agree to blood products: Yes Anes - Eval Final PreProcedure Day of Procedure 11/12/19 14:07 Patient weight: obese Heart: regular rate and rhythm Lungs: clear to auscultation and normal air movement Airway: Mallampati scale class II Neurological: alert and oriented Last oral intake: >/= 8 hours ASA classification: III Emergent: no Anesthetic plan: proceed Anesthesia type and monitoring: general GIVS and standard monitoring Informed Consent: The patient's anesthetic plan and its attendant risks and benefits were discussed with the patient/family/POA. Questions were solicited and answers provided to the satisfaction of the patient/family/POA.
[2019-11-12 14:10] VITALS: BP 204/63
[2019-11-12] MEDS: LACTATED RINGERS 1,000 ML 150 ML IV CONT (14:17)
--- NOTE | 2019-11-12 14:28 | SUR.PREOP ---
pt blood pressure 212/60 left arm, 204/63 right arm. Pt daughter in law states pt off bp meds x 4 days due to kidney function. Also states pt very anxious. Dr Fisher (Anesthesia) made aware.
--- NOTE | 2019-11-12 15:00 | WPDHPUPDATE1 ---
History and Physical Update Update Date/Time: 11/12/19 15:00 History and Physical has been reviewed, including an updated exam of the patient. There are NO changes in the patient's condition. Risks, benefits, and alternatives have been discussed and questions answered. Patient agrees to proceed with procedure.
[2019-11-12 15:23] VITALS: BP 163/70; PULSE 71; RESP 16; O2SAT 100
[2019-11-12 15:33] VITALS: BP 198/70; PULSE 72; RESP 24; O2SAT 100
[2019-11-12 15:43] VITALS: BP 173/74; PULSE 63; RESP 24; O2SAT 100
== END 2019-11-12 16:17 | disposition home or self-care (01) ==
PROVIDERS: PCP Family Medicine; Visit Provider Internal Medicine Gastroenterology
PROC: 0DJ08ZZ Inspection of Upper Intestinal Tract, Via Natural or Artificial Opening Endoscopic (ICD-10-PCS; CPT 43235; principal; 2019-11-12 14:00)
DX: K29.70 Gastritis, unspecified, without bleeding (principal); K92.1 Melena; I13.0 Hypertensive heart and chronic kidney disease with heart failure and stage 1 through stage 4 chronic kidney disease, or unspecified chronic kidney disease; I50.30 Unspecified diastolic (congestive) heart failure; N18.3 Chronic kidney disease, stage 3 (moderate); D64.9 Anemia, unspecified; I82.432 Acute embolism and thrombosis of left popliteal vein; E78.5 Hyperlipidemia, unspecified; K21.9 Gastro-esophageal reflux disease without esophagitis; J44.9 Chronic obstructive pulmonary disease, unspecified; M81.0 Age-related osteoporosis without current pathological fracture; M19.90 Unspecified osteoarthritis, unspecified site; Z79.82 Long term (current) use of aspirin; Z79.01 Long term (current) use of anticoagulants; F17.210 Nicotine dependence, cigarettes, uncomplicated; E66.9 Obesity, unspecified; Z68.34 Body mass index [BMI] 34.0-34.9, adult
CPT/HCPCS: 43239; J2704; J7120

== ENCOUNTER 2019-11-15 17:01 | Outpatient (CLI) | payer MEDICARE, SELFPAY ==
[2019-11-15 17:25] LABS: Appearance Urine Cloudy (Clear); Bilirubin Urine Negative (Negative); Color Urine Straw (Yellow); Glucose Urine UA Negative (Negative); Ketones Urine Negative (Negative); Leukocyte Esterase Ur 3+ (Negative); Nitrate Urine Negative (Negative); Protein Urine Negative (Negative); Urobilinogen Urine 0.2 mg/dL (0.2-1.0); pH Urine 5.5 (5.0-8.0)
[2019-11-15 17:27] LABS: Add Urine Microscopic? YES; Blood Urine Trace-Intact (Negative)
[2019-11-15 17:28] LABS: Bacteria Urine 3+ /hpf; RBC Urine None seen /hpf (0-2); Renal Epithelial Cells Urine Few /hpf; Squamous Epithelial Cell Urine Few /hpf (Few); WBC Urine >75 /hpf (0-3)
== END 2019-11-15 17:02 | disposition home or self-care (01) ==
LOC: CHSLAB 17:06
PROVIDERS: PCP Family Medicine
DX: I12.9 Hypertensive chronic kidney disease with stage 1 through stage 4 chronic kidney disease, or unspecified chronic kidney disease (principal); N18.4 Chronic kidney disease, stage 4 (severe); N25.81 Secondary hyperparathyroidism of renal origin
CPT/HCPCS: 81001

== ENCOUNTER 2019-11-20 15:19 | Outpatient (RCR) | payer MEDICARE, SELFPAY ==
[2019-11-20 15:50] LABS: INR 1.2; Prothrombin Time 12.2 Seconds (9.64-11.0)
== END 2020-02-18 23:59 | disposition home or self-care (01) ==
LOC: CHSLAB 15:19
PROVIDERS: PCP Family Medicine; Visit Provider Family Medicine
DX: I82.432 Acute embolism and thrombosis of left popliteal vein (principal)
CPT/HCPCS: 36415; 85610

== ENCOUNTER 2021-01-08 16:13 | Outpatient (CLI) | payer MEDICARE, SELFPAY ==
--- NOTE | ~2021-01-08 | XR_ITS ---
EXAMINATION: XR hip BI 2V w AP pelvis DATE: 01/08/2021 16:39 INDICATION: Low back and bilateral hip pain TECHNIQUE: Anteroposterior view of the pelvis and anteroposterior and frog-leg lateral views of the l eft hip and anteroposterior and frog-leg lateral views of the right hip and were obtained. COMPARISON: None. FINDINGS: Alignment is normal. No fracture or suspected avascular necrosis. Mild osteoarthritis at the bilatera l hips. Moderate bilateral sacroiliac osteoarthritis. Severe lower lumbar spondylosis. No erosions to suggest inflammatory sacroiliitis. A few phleboliths in the pelvis. IMPRESSION: 1. Severe lower lumbar spondylosis. 2. Mild bilateral hip and moderate bilateral sacroiliac osteoarthritis. Reviewed, dictated and finalized at location A.
[2021-01-08 16:27] LABS: Basophils Absolute Auto 0.05 K/mm3 (0.00-0.10); Basophils Percent Auto 0.6 % (0.0-1.0); Eosinophils Absolute Auto 0.14 K/mm3 (0.02-0.50); Eosinophils Percent Auto 1.8 % (1.0-6.0); Hematocrit 35.8 % (35.0-42.0); Hemoglobin 11.2 g/dL (11.7-13.8); Immature Granulocyte Absolute 0.02 K/mm3 (0.00-0.00); Immature Granulocyte Percent A 0.3 % (0.0-0.0); Lymphocytes Absolute Auto 1.18 K/mm3 (1.10-4.50); Lymphocytes Percent Auto 15.1 % (18.0-42.0); Mean Corpuscular HGB Conc 31.3 g/dL (32.0-36.0); Mean Corpuscular Hemoglobin 28.9 pg (27.0-31.0); Mean Corpuscular Volume 92.5 fL (78.0-102.0); Mean Platelet Volume 10.9 fl (9.2-11.8); Monocytes Absolute Auto 0.52 K/mm3 (0.10-0.90); Monocytes Percent Auto 6.7 % (2.0-11.0); Neutrophils Absolute Auto 5.9 K/mm3 (1.7-7.2); Neutrophils Percent Auto 75.5 % (50.0-70.0); Platelet Count Result 180 K/mm3 (150-420); Red Blood Count 3.87 M/mm3 (4.20-5.40); Red Cell Distribution Width 16.2 % (11.6-14.4); White Blood Count 7.8 K/mm3 (4.8-10.8)
[2021-01-08 16:40] LABS: INR 2.4; Prothrombin Time 24.8 Seconds (9.50-12.10)
[2021-01-08 17:19] LABS: Alanine Aminotransferase 15 U/L (14-59); Albumin Level 3.5 g/dL (3.4-5.0); Alkaline Phosphatase 158 U/L (46-116); Anion Gap 13 mmol/L (8-16); Aspartate Amino Transferase 15 U/L (15-37); Bilirubin,Total 0.3 mg/dL (0.00-1.00); Blood Urea Nitrogen 50 mg/dL (7-18); Calcium 8.9 mg/dL (8.5-10.1); Carbon Dioxide 23 mmol/L (21-32); Chloride 102 mmol/L (98-108); Cholesterol 132 mg/dL (0-200); Estimated Glomerular Filt Rate 16; Glucose 81 mg/dL (70-99); HDL Direct 44 mg/dL (40-60); LDL Cholesterol Calculated 61 mg/dL (<130); Osmolality Calculated 298 mOsm/kg (285-295); Potassium 4.4 mmol/L (3.5-5.1); Sodium 138 mmol/L (136-145); Total Protein 8.9 g/dL (6.4-8.2); Triglycerides 137 mg/dL (0-150)
[2021-01-08 17:26] LABS: Hemoglobin A1C 5.5 % (<5.7)
== END 2021-01-08 16:14 | disposition home or self-care (01) ==
LOC: CHSLAB 16:17
PROVIDERS: PCP Family Medicine; Visit Provider Family Medicine
DX: M54.9 Dorsalgia, unspecified (principal); M25.552 Pain in left hip; M25.551 Pain in right hip; E87.5 Hyperkalemia; I12.9 Hypertensive chronic kidney disease with stage 1 through stage 4 chronic kidney disease, or unspecified chronic kidney disease; N18.30 Chronic kidney disease, stage 3 unspecified; E21.3 Hyperparathyroidism, unspecified; I82.432 Acute embolism and thrombosis of left popliteal vein; R73.02 Impaired glucose tolerance (oral)
CPT/HCPCS: 36415; 73521; 80053; 80061; 83036; 84443; 85025; 85610

== ENCOUNTER 2021-02-10 14:08 | Outpatient (RCR) | payer MEDICARE, SELFPAY ==
--- NOTE | 2021-02-10 15:09 | PTOPEVAL ---
Thank you for referring Tamar Bob to [facility].? The patient is scheduled to be seen for therapy? ____x/week for ___ weeks. Please review, sign, date and return this plan of care BAUTISTA. I agree with and certify that the following plan of care is medically necessary. Referring Physician Date Admitting Provider: Attending Provider: Adriel Cohen MD Referring Provider: *PT Outpatient Evaluation Start: 02/10/21 14:09 Freq: Status: Active Protocol: Document 02/10/21 14:25 ACR (Rec: 02/10/21 15:08 ACR [id number]) Therapy Assessment Status Assessment Status Assessment Status Evaluation Outpatient Past Medical History Neurological History Hx Neurological Disorders No Significant History Cardiovascular History Hx Congestive Heart Failure Yes Hx Deep Vein Thrombosis Yes: Left leg 10/21/2019 started on coumadin Hx Hypercholesterolemia Yes Hx Hypertension Yes Respiratory History Hx Bronchitis Yes Hx Chronic Obstructive Pulmonary Disease Yes: uses inhaler (COPD) Hx Pneumonia Yes Gastrointestinal History Hx Appendectomy Yes Hx Cholecystectomy Yes Hx Gastroesophageal Reflux Disease Yes Hx Gastrointestinal Bleed Yes: upper and lower hospitalized in [place] 2019 Genitourinary History Hx Renal Disease Yes: Stage 3 Musculoskeletal History Hx Arthritis Yes Hematological History Hx Hematological Disorders No Significant History Endocrine History Hx Endocrine Disorders No Significant History HEENT History Hx Other HEENT Disorders Yes: Bleeding behind right eye 2019-broken blood vessel Integumentary History Hx Shingles Yes Reproductive History Hx Post Menopausal Yes Psychosocial History Hx Depression Yes Pain History History of Any Previous or Ongoing No Significant History Instance of Pain Anesthesia History Hx Anesthesia Reactions No Significant History Evaluation Information Problem Diagnosis LBP, hip pain Onset 09/11/20 Subjective Information Patient states at the Query Text:As Reported By Patient/ beginning of the year she Family started to have some pain in the back and hip. She said there was no mechanism of injury, but she was getting into her son's SUV where she feels like she strained her back. Patient states th
--- NOTE | 2021-04-19 09:44 | PCPTNOTE ---
Patient is an 85 year old female that participated in 6 physical therapy visits for low back pain and R hip pain. The patient called and stated that she was doing great and would like to be discharged from therapy at this time. Please refer to recent treatment note for discharge status. Thank you, THANH HassanT
== END 2021-03-17 10:15 | disposition home or self-care (01) ==
LOC: CHSPT 14:08
PROVIDERS: PCP Family Medicine; Visit Provider Family Medicine
DX: M54.9 Dorsalgia, unspecified (principal); M25.559 Pain in unspecified hip; R26.9 Unspecified abnormalities of gait and mobility
CPT/HCPCS: 97014; 97110; 97161; G0283

== ENCOUNTER 2021-07-06 16:33 | Emergency (ER) | payer MEDICARE, SELFPAY ==
[2021-07-06 16:53] VITALS: BP 202/64; PULSE 84; RESP 20; TEMP 36.9; O2SAT 97
--- NOTE | 2021-07-06 16:53 | ED.EXTPRO ---
HPI - Extremity Problem General Chief complaint: Unspecified Stated complaint: swelling and rash on both legs Source: patient and family Mode of arrival: ambulatory History of Present Illness Complaint: extremity swelling Onset (ago): day(s) (2) Pain Consistency: constant Location: left, right and lower extremity Quality: aching Radiation: distal Relieving factors: nothing Exacerbating factors: weight bearing Associated symptoms: denies other symptoms Context: history of DVT and history of peripheral vascular disease Related Data Home Medications Medication Instructions Recorded Confirmed pravastatin 40 mg PO BID 07/06/21 07/06/21 Allergies Allergy/AdvReac Type Severity Reaction Status Date / Time No Known Allergies Allergy Mild Verified 07/06/21 16:57 Review of Systems Review of Systems: All systems reviewed & are unremarkable except as noted in HPI and below Constitutional: Constitutional: Denies chills and Denies fever(s) Cardiovascular: Cardiovascular: Denies chest pain Respiratory: Respiratory: Denies cough and Denies dyspnea Musculoskeletal: Musculoskeletal: Denies muscle cramps PMFSH Past Medical History Medical History Chronic kidney disease, stage [address] is [address] Jaylen Barrera at [facility] and was told recently that she is at stage III. Creatinine has ranged from 1.91 to 2.62 in the last several months. Fall Gait abnormality Generalized osteoarthritis GERD (gastroesophageal reflux disease) History of COPD Hyperlipidemia Hyperparathyroidism Hypertension Impaired glucose tolerance Major depression, recurrent Melena On warfarin therapy Osteoporosis Pulmonary nodule Tobacco dependence Surgical History Surgical History H/O vein stripping History of appendectomy History of cholecystectomy Family History Family History Mother Hypertension Breast cancer Sister Asthma Hypertension Father , at age 36 No problems noted. Social History Social History Social History: The patient lives in her own home in [place]. She has smoked 1 pack of cigarettes per day at least for the last 50 years. She has 6 children. She designates her daughter Lisa and [id number] Shiloh as her surrogate decision makers and she wishes to be a full code. Smoking packs per day: 1 Smoking cigarettes per day: 20.0 Years smoked: 70 Smoking pack-years: 70.00 Smoking status: Current every day smoker Tobacco type: cigarettes Second hand tobacco smoke exposure: Yes Alcohol intake: never Drinks per week: 0 Substance use: never Additional living arrangements comments: . 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 Gender identity (if verbalized by the patient): Female Spiritual care concerns: No Agree to blood products: Yes Exam Const: General: healthy appearing, no acute distress and alert Nutritional Appearance: well nourished Orientation/consciousness: patient oriented x3 HENMT: Head: normal to inspection Ears: external ears normal Mouth: Yes moist mucous membranes Eyes: Conjunctivae: conjunctivae normal Pupils: Equal, round and reactive pupils present EOM: EOMs intact bilaterally Neck: Neck: normal visual inspection Resp: Effort & Inspection: normal respiratory effort Auscultation: rhonchi throughout and wheezes scattered wheezes and posterior Cardio: Rate: regular rate Rhythm: regular rhythm GI: GI Palp: Yes Soft to palpation and No Tenderness to palpation present (GI) Auscultation: normal bowel sounds Back/Spine/Pelvis: Cervical Spine: cervical ROM normal Thoracic/Lumbar Spine: thoraco-lumbar ROM normal Skin: General skin exam: normal color Rashes: no rashes Ne
[2021-07-06 17:16] LABS: Basophils Absolute Auto 0.04 K/mm3 (0.00-0.10); Basophils Percent Auto 0.7 % (0.0-1.0); Eosinophils Absolute Auto 0.16 K/mm3 (0.02-0.50); Eosinophils Percent Auto 2.8 % (1.0-6.0); Hematocrit 27.8 % (35.0-42.0); Hemoglobin 8.5 g/dL (11.7-13.8); Immature Granulocyte Absolute 0.02 K/mm3 (0.00-0.00); Immature Granulocyte Percent A 0.3 % (0.0-0.0); Immature Platelet Fraction Pct 4.1 % (1.0-7.0); Lymphocytes Absolute Auto 1.02 K/mm3 (1.10-4.50); Lymphocytes Percent Auto 17.7 % (18.0-42.0); Mean Corpuscular HGB Conc 30.6 g/dL (32.0-36.0); Mean Corpuscular Hemoglobin 28.2 pg (27.0-31.0); Mean Corpuscular Volume 92.4 fL (78.0-102.0); Mean Platelet Volume 11.2 fl (9.2-11.8); Monocytes Absolute Auto 0.52 K/mm3 (0.10-0.90); Neutrophils Percent Auto 69.5 % (50.0-70.0); Platelet Count Result 141 K/mm3 (150-420); Red Blood Count 3.01 M/mm3 (4.20-5.40); Red Cell Distribution Width 14.6 % (11.6-14.4); White Blood Count 5.8 K/mm3 (4.8-10.8)
[2021-07-06 17:25] LABS: INR 1.7; Prothrombin Time 17.6 Seconds (9.50-12.10)
[2021-07-06 17:41] LABS: Alanine Aminotransferase 20 U/L (14-59); Albumin Level 2.8 g/dL (3.4-5.0); Alkaline Phosphatase 100 U/L (46-116); Anion Gap 12 mmol/L (8-16); Aspartate Amino Transferase < 10 U/L (15-37); Bilirubin,Total 0.3 mg/dL (0.00-1.00); Blood Urea Nitrogen 38 mg/dL (7-18); Calcium 8.2 mg/dL (8.5-10.1); Carbon Dioxide 25 mmol/L (21-32); Chloride 104 mmol/L (98-108); Estimated Glomerular Filt Rate 17; Glucose 113 mg/dL (70-99); NT Pro B Type Natriuretic Pept 9616 pg/mL (0-450); Osmolality Calculated 302 mOsm/kg (285-295); Potassium 3.6 mmol/L (3.5-5.1); Sodium 141 mmol/L (136-145); Total Protein 7.8 g/dL (6.4-8.2)
[2021-07-06 18:30] VITALS: BP 206/65; PULSE 76; RESP 20; TEMP 36.8; O2SAT 100
== END 2021-07-06 18:32 | disposition home or self-care (01) ==
PROVIDERS: Emergency Provider Emergency Medicine; PCP Family Medicine
DX: I50.23 Acute on chronic systolic (congestive) heart failure (principal); K21.9 Gastro-esophageal reflux disease without esophagitis; J44.9 Chronic obstructive pulmonary disease, unspecified; E78.5 Hyperlipidemia, unspecified; Z79.01 Long term (current) use of anticoagulants; F17.200 Nicotine dependence, unspecified, uncomplicated; M81.0 Age-related osteoporosis without current pathological fracture; I11.0 Hypertensive heart disease with heart failure
CPT/HCPCS: 36415; 80053; 83880; 85025; 85055; 85610; 99283

== ENCOUNTER 2021-07-23 14:31 | Outpatient (CLI) | payer MEDICARE, SELFPAY ==
--- NOTE | ~2021-07-23 | CT_ITS ---
EXAMINATION: CT lumbar spine [facility] EXAM DATE: 07/23/2021 14:56 INDICATION: M54.50 - Low back pain, unspecified . TECHNIQUE: Spiral CT of the lumbar spine was performed without contrast. Axial, coronal and sagittal images lumbar spine were reviewed. The dose-length product (DLP) for this examination was 998.35 mG y-cm. The exposure was tailored according to patient size (auto mA exposure control), and iterative reconstruction (ASIR) was used as additional dose reduction technique. There is no prior study for comparison. FINDINGS: There is moderate to severe disc disease L1-S1 with vacuum disc phenomenon at all of these levels. There is 3 mm anterolisthesis L3 on L4, 6 mm anterolisthesis L4 on L5 and L5 on S1 without sp ondylolysis. Vertebral body heights relatively well-maintained. No endplate erosive change. There are no acute fractures identified. There is a 1.6 cm left adrenal adenoma and 2.4 cm left renal cyst. Extensive aortic arterial sclerosi s, with diminutive common iliac arteries bilaterally. Level by level evaluation: T12-L1: Disc does not extend beyond the endplate margin. Facet arthropathy: Mild bilateral. Neural foraminal stenosis: No stenosis. Central canal stenosis: No stenosis. L1-L2: There is a mild diffuse disc bulge. Facet arthropathy: Mild. Neural foraminal stenosis: No stenosis. Central canal stenosis: No stenosis. L2-L3: There is a moderate diffuse disc bulge. Facet arthropathy: Moderate. Neural foraminal stenosis: Mild bilateral. Central canal stenosis: Mild to moderate. L3-L4: There is a moderate to large diffuse disc bulge. Facet arthropathy: Severe . Ligamentum flavum enlargement. Neural foraminal stenosis: Mild to moderate right, mild left. Central canal stenosis: Severe. L4-L5: There is a large diffuse disc bulge. Facet arthropathy: Severe. Neural foraminal stenosis: Moderate right, mild to moderate left. Central canal stenosis: Severe. L5-S1: There is a moderate diffuse disc bulge. Facet arthropathy: Severe. Neural foraminal stenosis: Moderate bilateral. Central canal stenosis: Moderate. IMPRESSION: 1. Severe lumbar spondylosis, L3-4 and L4-5 central canal stenosis. 2. Grade 1 anterolisthesis L3 on L4, L4 on L5 and L5 on S1. 3. No acute findings. Reviewed, dictated and finalized at location A. ISSIONING AGENT
--- NOTE | ~2021-07-23 | XR_ITS ---
EXAMINATION: XR chest 2V DATE: 07/23/2021 15:06 INDICATION: Shortness of breath. Chronic obstructive pulmonary disease. TECHNIQUE: Frontal and lateral views of the chest were obtained. COMPARISON: Chest single view 10/21/2019, chest CT 11/12/2018 FINDINGS: The lung volumes are normal. There is a chronic diffuse interstitial pattern in the lungs. Calcified right lung nodules and calcified right hilar lymph nodes are consistent with old granulomat ous disease. No pleural effusion or pneumothorax. The heart size is normal. IMPRESSION: 1. Stable chronic interstitial lung disease. Reviewed, dictated and finalized at location A. OPEDIC DESIGNER
== END 2021-07-23 14:32 | disposition home or self-care (01) ==
PROVIDERS: PCP Family Medicine; Visit Provider Family Medicine
DX: M54.50 Low back pain, unspecified (principal); R06.00 Dyspnea, unspecified
CPT/HCPCS: 71046; 72131

== ENCOUNTER 2021-07-24 13:59 | Emergency (ER) | payer MEDICARE, SELFPAY ==
--- NOTE | ~2021-07-24 | CT_ITS ---
EXAMINATION: CT brain wo con INDICATION: Head injury COMPARISON: None TECHNIQUE: Standard unenhanced head CT. The dose-length product (DLP) was 605.33 mGy-cm. The mA was a djusted according to patient size. Iterative reconstruction technique was employed. FINDINGS: There is a left posterior parietal scalp hematoma. There is no acute intraparenchymal hemor rhage. No evidence of mass lesion. No evidence of acute infarction. There is mild periventricular and subcortical hypodensity probably related to small vessel ischemic disease. There is mild prominence of the sulci and ventricles related to cerebral atrophy. Intracranial calcified cerebral atherosclero sis is noted. There are no extra-axial collections. There is no mass effect or midline shift. Changes in the globes are likely from ocular lens surgery. The visualized sinuses and mastoid air cells are well aerated. IMPRESSION: 1. Left posterior parietal scalp hematoma without acute intracranial abnormality. 2. Age related findings. Reviewed, dictated and finalized at location A. ER TAR IMPRESSION: 1. Left posterior parietal scalp hematoma without acute intracranial abnormalit y. 2. Age related findings.
[2021-07-24 14:32] VITALS: BP 240/51; PULSE 97; RESP 20; TEMP 36.8; O2SAT 98
[2021-07-24 14:49] LABS: INR 3.7; Prothrombin Time 37.3 Seconds (9.50-12.10)
--- NOTE | 2021-07-24 14:52 | ED.FALL ---
HPI - Fall General Chief Complaint: Fall Stated Complaint: head injury Source: patient and family Mode of arrival: wheelchair Limitations: no limitations History of Present Illness HPI Narrative: this is an 85-year-old female that presents after she lost her balance and struck her head on a desk causing a contusion to the left side of her scalp, there was no loss of consciousness currently no nausea vomiting no headache no blurry vision no neurological deficits, the patient is currently on Coumadin for DVT. complaint: fall Onset (ago): hour(s) Place fall occurred: home Loss of consciousness: none Related Data Home Medications Medication Instructions Recorded Confirmed pravastatin 40 mg PO DAILY 07/06/21 07/24/21 furosemide 20 mg PO DAILY 07/24/21 07/24/21 Allergies Allergy/AdvReac Type Severity Reaction Status Date / Time No Known Allergies Allergy Mild Verified 07/24/21 14:40 Review of Systems Review of Systems: All systems reviewed & are unremarkable except as noted in HPI and below PMFSH Past Medical History Medical History Chronic kidney disease, stage [address] She is followed by [address] Jaylen Barrera at [facility] and was told recently that she is at stage III. Creatinine has ranged from 1.91 to 2.62 in the last several months. CKD (chronic kidney disease) stage 4, GFR 15-29 ml/min Dyspnea Fall Gait abnormality Generalized osteoarthritis GERD (gastroesophageal reflux disease) History of COPD Hyperlipidemia Hyperparathyroidism Hypertension Impaired glucose tolerance Low back pain Lower extremity edema Major depression, recurrent Melena On warfarin therapy Osteoporosis Pulmonary nodule Tobacco dependence Surgical History Surgical History H/O vein stripping History of appendectomy History of cholecystectomy Family History Family History Mother Hypertension Breast cancer Sister Asthma Hypertension Father , at age 36 No problems noted. Social History Social History Social History: The patient lives in her own home in [place]. She has smoked 1 pack of cigarettes per day at least for the last 50 years. She has 6 children. She designates her daughter Lisa and [id number] Shiloh as her surrogate decision makers and she wishes to be a full code. Smoking packs per day: 1 Smoking cigarettes per day: 20.0 Years smoked: 70 Smoking pack-years: 70.00 Smoking status: Current every day smoker Tobacco type: cigarettes Second hand tobacco smoke exposure: Yes Alcohol intake: never Drinks per week: 0 Substance use: never Additional living arrangements comments: . 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 Gender identity (if verbalized by the patient): Female Spiritual care concerns: No Agree to blood products: Yes Exam Const: General: healthy appearing, no acute distress and alert Orientation/consciousness: patient oriented x3 Limitations: altered mental status HENMT: Head: normal to inspection and contusion ( Left scalp area) Eyes: Conjunctivae: conjunctivae normal Pupils: Equal, round and reactive pupils present Neck: Neck: normal visual inspection, no lymphadenopathy and no meningeal signs Chest: Chest palpation & inspection: normal inspection of the chest Resp: Effort & Inspection: normal respiratory effort Cardio: Rate: regular rate Rhythm: regular rhythm GI: Auscultation: normal bowel sounds : General: Yes no CVA tenderness Urinary Catheter: Urinary Catheter: patent and draining Back/Spine/Pelvis: Back: no CVA tenderness Skin: General skin exam: normal color Rashes: no rashes Neuro: General: patient oriented x3, moves all extremities, no meni
[2021-07-24] MEDS: cloNIDine HCL 0.1 MG TABLET 0.2 MG PO (15:44)
--- NOTE | 2021-07-24 16:33 | PC.NURSE ---
1544 clonidine 0.2mg po given b/p 236/67 1610 b/p 228/65
[2021-07-24 17:12] VITALS: BP 194/45; PULSE 62; RESP 20; TEMP 36.7; O2SAT 98
== END 2021-07-24 17:16 | disposition home or self-care (01) ==
PROVIDERS: Emergency Provider Emergency Medicine; PCP Family Medicine
DX: S00.03XA Contusion of scalp, initial encounter (principal); I12.9 Hypertensive chronic kidney disease with stage 1 through stage 4 chronic kidney disease, or unspecified chronic kidney disease; W19.XXXA Unspecified fall, initial encounter; N18.4 Chronic kidney disease, stage 4 (severe); K21.9 Gastro-esophageal reflux disease without esophagitis; E78.5 Hyperlipidemia, unspecified; F17.200 Nicotine dependence, unspecified, uncomplicated
CPT/HCPCS: 36415; 70450; 85610; 99282; 99284; A9270

== ENCOUNTER 2021-11-25 14:30 | Emergency (ER) | payer MEDICARE, SELFPAY ==
[2021-11-25] VITALS (8 sets, daily range): BP systolic 147–173; BP diastolic 40–53; PULSE 58–62; RESP 16–18; TEMP 36.1–36.3; O2SAT 94–96
--- NOTE | ~2021-11-25 | XR_ITS ---
EXAMINATION: XR chest 1V portable DATE: 11/25/2021 15:29 INDICATION: Congestive heart failure. TECHNIQUE: A single frontal view of the chest was obtained. COMPARISON: Chest 2 views 07/23/2021, chest CT 11/12/2018 FINDINGS: The lung volumes are normal. Calcified right lung nodules are consistent with old granuloma tous disease. There is a diffuse interstitial pattern in the lungs. There are mild airspace opacities in left lower lung zone. No pleural effusion or pneumothorax. The heart size is normal. IMPRESSION: 1. Stable chronic interstitial lung disease. Reviewed, dictated and finalized at location A.
[2021-11-25 14:58] LABS: Glucose Point of Care 125 mg/dl (65-105)
--- NOTE | 2021-11-25 15:14 | ECG_ITS ---
Measurements Intervals [place] Rate: 56 P: -76 IA: 329 QRS: -51 QRSD: 109 T: 57 QT: 455 QTc: 440 Interpretive Statements SINUS BRADYCARDIA WITH FIRST DEGREE AV BLOCK LEFT ANTERIOR FASCICULAR BLOCK [QRS AXIS <= -45, QR IN I, RS IN II] POOR R-WAVE PROGRESSION COMPARED TO ECG 10/21/2019 13:44:09 SINUS BRADYCARDIA NOW PRESENT THERE ARE NEW LATERAL ST SEGMENT CHANGES Electronically Signed On 11-25-2021 18:36:54 CDT by Portia Rasheed M.D.
--- NOTE | 2021-11-25 15:22 | ED.GENADULT ---
HPI - General Adult General Chief complaint: Unspecified Stated complaint: blood pressure/pulse extremely low Source: patient and family Mode of arrival: ambulatory Limitations: physical limitation History of Present Illness HPI narrative: this is a 86-year-old female with a history of CHF with diastolic dysfunction and follows with Cardiology, has some increased weakness, home health nurse found that her heart rate and blood pressure were low and was sent to the emergency department. Currently blood pressure stable heart rate is 58, the patient is currently on Coreg Lasix and spironolactone. The patient denies having any shortness of breath no chest pain no abdominal pain no fever or chills no diarrhea constipation. Family members with the patient states that she has been increasingly weak over the last 3 to 4 days. Onset (ago): day(s) Severity: moderate Related Data Home Medications Medication Instructions Recorded Confirmed pravastatin 40 mg PO DAILY 07/06/21 11/25/21 furosemide 20 mg tablet 40 mg PO DAILY tablet 08/16/21 11/25/21 warfarin 4 mg PO DAILY 11/25/21 11/25/21 Allergies Allergy/AdvReac Type Severity Reaction Status Date / Time No Known Allergies Allergy Mild Verified 11/25/21 15:02 Review of Systems Review of Systems: All systems reviewed & are unremarkable except as noted in HPI and below PMFSH Past Medical History Medical History CKD (chronic kidney disease) stage 4, GFR 15-29 ml/min Fall Generalized osteoarthritis GERD (gastroesophageal reflux disease) History of COPD Hyperlipidemia Hyperparathyroidism Hypertension Low back pain Major depression, recurrent Osteoporosis Pulmonary nodule Tobacco dependence Surgical History Surgical History H/O vein stripping History of appendectomy History of cholecystectomy Family History Family History Mother Hypertension Breast cancer Sister Asthma Hypertension Father , at age 36 No problems noted. Social History Social History Social History: The patient lives in her own home in [place]. She has smoked 1 pack of cigarettes per day at least for the last 50 years. She has 6 children. She designates her daughter Lisa and ykruskvc-ks-rle Shiloh as her surrogate decision makers and she wishes to be a full code. Smoking packs per day: 1 Smoking cigarettes per day: 20.0 Years smoked: 70 Smoking pack-years: 70.00 Tobacco type: cigarettes Second hand tobacco smoke exposure: Yes Alcohol intake: never Drinks per week: 0 Substance use: never Additional living arrangements comments: . 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 Gender identity (if verbalized by the patient): Female Spiritual care concerns: No Agree to blood products: Yes Exam Const: General: cooperative, comfortable, no acute distress, well developed and alert HENMT: Head: normal to inspection Ears: hearing grossly normal bilaterally General nose exam: Normal external nose present Face and sinus: normal facial exam Eyes: General: appearance normal, both eyes and all related structures Eyelids: eyelids normal Conjunctivae: conjunctivae normal Sclera: sclerae normal Neck: Neck: normal visual inspection, full ROM, no lymphadenopathy and no meningeal signs Chest: Chest palpation & inspection: normal inspection of the chest and normal palpation of entire chest wall Resp: Effort & Inspection: normal respiratory effort and able to speak in complete sentences tactile fremitus present: other ( Lungs with crackles at the lower bases bilaterally) Cardio: Jugular venous distension: no JVD Palpation: abnormal PMI Rate: bradycardic Rhythm: regular rhythm GI: Inspection:
[2021-11-25 16:03] LABS: Basophils Absolute Auto 0.04 K/mm3 (0.00-0.10); Basophils Percent Auto 0.8 % (0.0-1.0); Eosinophils Absolute Auto 0.03 K/mm3 (0.02-0.50); Eosinophils Percent Auto 0.6 % (1.0-6.0); Immature Granulocyte Absolute 0.02 K/mm3 (0.00-0.00); Immature Granulocyte Percent A 0.4 % (0.0-0.0); Lymphocytes Absolute Auto 0.83 K/mm3 (1.10-4.50); Lymphocytes Percent Auto 16.3 % (18.0-42.0); Mean Corpuscular HGB Conc 27.6 g/dL (32.0-36.0); Mean Corpuscular Hemoglobin 25.2 pg (27.0-31.0); Mean Corpuscular Volume 91.3 fL (78.0-102.0); Mean Platelet Volume 12.3 fl (9.2-11.8); Monocytes Percent Auto 7.9 % (2.0-11.0); Neutrophils Absolute Auto 3.8 K/mm3 (1.7-7.2); Nucleated Red Blood Cells Absolute Auto 0.04 K/mm3 (0.00-0.00); Nucleated Red Blood Cells Perc 0.8 % (0-0.0); Platelet Count Result 113 K/mm3 (150-420); Red Cell Distribution Width 16.8 % (11.6-14.4); White Blood Count 5.1 K/mm3 (4.8-10.8)
[2021-11-25 16:12] LABS: Hemoglobin 5.8 g/dL (11.7-13.8)
[2021-11-25 16:14] LABS: INR 3.4; Partial Thromboplastin Time 45.4 SEC (23.90-30.70); Prothrombin Time 34.5 Seconds (9.50-12.10)
[2021-11-25 16:17] LABS: Add Urine Microscopic? YES; Appearance Urine Sl Cloudy (Clear); Bilirubin Urine Negative (Negative); Blood Urine 2+ (Negative); Color Urine Light Yellow (Yellow); Glucose Urine UA Negative (Negative); Ketones Urine Negative (Negative); Leukocyte Esterase Ur 2+ (Negative); Nitrate Urine Negative (Negative); Protein Urine 1+ (Negative); Specific Grav Ur 1.015 (1.010-1.020); Urobilinogen Urine 0.2 mg/dL (0.2-1.0); pH Urine 6.5 (5.0-8.0)
[2021-11-25 16:21] LABS: Lactic Acid Reflex 1.4 mmol/L (0.4-2.0)
[2021-11-25 16:21] LABS: Squamous Epithelial Cell Urine Rare /hpf (Few); WBC Urine 21-30 /hpf (0-3)
[2021-11-25 16:22] LABS: Bacteria Urine 4+ /hpf
[2021-11-25 16:29] LABS: Alanine Aminotransferase 12 U/L (14-59); Alkaline Phosphatase 77 U/L (46-116); Anion Gap 10 mmol/L (8-16); Aspartate Amino Transferase 19 U/L (15-37); Bilirubin,Total 0.7 mg/dL (0.00-1.00); Blood Urea Nitrogen 69 mg/dL (7-18); Calcium 8.3 mg/dL (8.5-10.1); Carbon Dioxide 24 mmol/L (21-32); Chloride 100 mmol/L (98-108); Estimated CRCL calculation 57 ml/min; Estimated Glomerular Filt Rate 11; Glucose 101 mg/dL (70-99); Osmolality Calculated 298 mOsm/kg (285-295); Sodium 134 mmol/L (136-145)
[2021-11-25 16:32] LABS: NT Pro B Type Natriuretic Pept 8380 pg/mL (0-450); Troponin I 22.4 ng/L (0.00-60.4)
[2021-11-25 16:36] LABS: Occult Blood Positive (Negative)
[2021-11-25] MEDS: SODIUM CHLORIDE 0.9% IV 100 ML 30 ML (17:35)
[2021-11-25] MEDS: PHYTONADIONE INJ 10 MG/ML AMP SUB-Q (17:56)
--- NOTE | 2021-11-25 19:46 | PC.NURSE ---
1820...pt refused ng insertion. benefits and risks explained. pt conversed with family member and continued to refuse procedure. AMA form completed.
--- NOTE | 2021-11-25 19:47 | PC.NURSE ---
1930...erp speaking with pt and family re: ng tube. pt agrees to procedure.
[2021-11-25 19:48] LABS: Hematocrit 24.3 % (35.0-42.0)
== END 2021-11-25 19:57 | disposition short-term general hospital (02) ==
PROVIDERS: Emergency Provider Emergency Medicine; PCP Family Medicine
DX: K92.2 Gastrointestinal hemorrhage, unspecified (principal); K21.9 Gastro-esophageal reflux disease without esophagitis; R06.89 Other abnormalities of breathing; J44.9 Chronic obstructive pulmonary disease, unspecified; E78.5 Hyperlipidemia, unspecified; I10 Essential (primary) hypertension
CPT/HCPCS: 36415; 36430; 71045; 80053; 81001; 82948; 83605; 83880; 84484; 85014; 85018; 85025; 85610; 85730; 86850; 86900; 86901; 86920; 87040; 93005; 96360; 96361; 96372; 99285; J3430; P9016

== ENCOUNTER 2021-11-26 00:43 | Inpatient (IN) | payer MEDICARE, SELFPAY ==
--- NOTE | 2021-11-25 21:17 | ADMGEN ---
This patient, Tamar Bob, was admitted to 2 Medical Room 250-01. Patient/family oriented to hospital policies and general routines including ID bracelet, bed and alarms, visiting hours, pain management, procedures, bathroom and other care routines, personal items, smoking policy, room service/diet, and visiting hours. Information on how to activate the Rapid Response Team has been discussed. Patient/Family are encouraged to report perceived risks to care and to ask questions if they do not understand what they are told or what they should do. Direct admit from [place], arrived by EMS @2100
--- NOTE | 2021-11-25 21:32 | PM.IMHP ---
H&P: HPI History of Present Illness Date/Time: 11/25/21 21:32 Chief Complaint: Weakness Narrative: This is an 86-year-old female with past medical history significant for congestive heart failure, diastolic dysfunction, chronic kidney disease, hypertension, DVT, anticoagulated, gastroesophageal reflux disease. Patient presents to the emergency room a for evaluation after going to outside hospital for evaluation of hemoglobin found to be 6 on patient's usual is in the 8's also positive Hemoccult. Although patient denies any sites of bleeding any hematemesis, melena, bright red blood per rectum. Preliminary workup was significant for hemoglobin of 6.7, urinalysis was significant for numerous WBCs present. Patient denies any fevers, rigors, chills, abdominal pain, nausea, vomiting or diarrhea. Patient was transferred to our hospital for further evaluation, management and treatment. Review of Systems Review of Systems: Weakness, low hemoglobin. Constitutional: Constitutional: Denies chills, Reports fatigue, Denies fever(s), Denies frequent falls, Reports lethargy, Denies malaise, Denies night sweats, Denies poor appetite, Reports weakness and Denies weight loss Eyes: Eyes: Denies change in vision ENT: Denies dysphagia, Denies vertigo, Denies nasal congestion, Denies nasal discharge, Denies nasal obstruction and Denies odynophagia Cardiovascular: Cardiovascular: Denies chest pain, Denies pedal edema, Denies leg edema, Denies radiating jaw, neck or arm pain, Denies palpitations, Denies dyspnea on exertion and Denies orthopnea Respiratory: Respiratory: Denies cough and Denies dyspnea Gastrointestinal: Gastrointestinal: Denies abdominal pain, Denies melena, Denies hematochezia, Denies coffee ground emesis, Denies dyspepsia, Denies heartburn, Denies nausea and Denies vomiting Genitourinary: Genitourinary: Denies dysuria Musculoskeletal: Musculoskeletal: Denies arthralgias and Denies muscle weakness Integumentary/Breasts: Skin/Breast: Denies rash Neurologic: Denies focal weakness and Denies Sensory deficit (Neuro) Psychiatric: Psychiatric: Reports no additional psychiatric complaints and Reports as per HPI Endocrine: Endocrine: Denies cold intolerance, Denies heat intolerance, Denies polyphagia, Denies polydipsia and Denies palpitations Hematologic/Lymphatic: Hematologic/Lymphatic: Reports no additional hematologic/lymphatic complaints and Reports as per HPI Allergic/Immunologic: Allergic/Immunologic: Reports no additional allergic/immunologic complaints and Reports as per HPI PMFSH Past Medical History Medical History CKD (chronic kidney disease) stage 4, GFR 15-29 ml/min Fall Generalized osteoarthritis GERD (gastroesophageal reflux disease) History of COPD Hyperlipidemia Hyperparathyroidism Hypertension Low back pain Major depression, recurrent Osteoporosis Pulmonary nodule Tobacco dependence Surgical History Surgical History H/O vein stripping History of appendectomy History of cholecystectomy Family History Family History Mother Hypertension Breast cancer Sister Asthma Hypertension Father , at age 36 No problems noted. Social History Social History Social History: The patient lives in her own home in [place]. She has smoked 1 pack of cigarettes per day at least for the last 50 years. She has 6 children. She designates her daughter Lisa and [id number] Shiloh as her surrogate decision makers and she wishes to be a full code. Smoking packs per day: 0.5 Smoking cigarettes per day: 10.0 Years smoked: 68 Smoking pack-years: 34.00 Smoking status: Current every day smoker Tobacco type: cigarettes Second hand tobacco smoke exposure: Yes Alcohol intake: never
[2021-11-25 22:15] VITALS: BP 165/49; PULSE 65; RESP 16; TEMP 36.1; O2SAT 94
[2021-11-25 22:35] VITALS: BP 165/49; PULSE 65; RESP 16; TEMP 36.1; O2SAT 94; BMI 32.8
[2021-11-26] VITALS (13 sets, daily range): BP systolic 129–189; BP diastolic 40–85; PULSE 54–81; RESP 12–24; TEMP 36.1–36.6; O2SAT 92–100
--- NOTE | ~2021-11-26 | XR_ITS ---
XR abdomen NG/feed tube insert DATE: 11/25/2021 21:31 INDICATION: NG tube placement TECHNIQUE: Portable AP view on 11/25/2021 at 2124 hour COMPARISON: None FINDINGS: The NG tube extends 13 cm into the lower body of the stomach. Nonspecific bowel gas pattern. No free air is evident. IMPRESSION: NG tube in body of stomach. Reviewed, dictated and finalized at Location A. Reviewed, dictated and finalized at location A. IMPRESSION: NG tube in body of stomach.
--- NOTE | ~2021-11-26 | CT_ITS ---
EXAMINATION: CT brain wo con INDICATION: Slurred speech COMPARISON: 07/24/2021 TECHNIQUE: Standard unenhanced head CT. The dose-length product (DLP) was 605.33 mGy-cm. The mA was a djusted according to patient size. Iterative reconstruction technique was employed. FINDINGS: There is no acute intraparenchymal hemorrhage. No evidence of mass lesion. No evidence of a cute infarction. There is mild periventricular and subcortical hypodensity probably related to small vessel ischemic disease. There is mild prominence of the sulci and ventricles related to cerebral atr ophy. Intracranial calcified cerebral atherosclerosis is noted. There are no extra-axial collections. There is no mass effect or midline shift. Changes in the globes are likely from ocular lens surgery. There is mild mucosal thickening of the paranasal sinuses. IMPRESSION: 1. No acute intracranial abnormality. 2. Age related findings. Reviewed, dictated and finalized at location D.
[2021-11-26] MEDS: DEXTROSE 5%/0.45% SOD CHL 1,000 ML 75 ML IV CONT (04:51)
--- NOTE | 2021-11-26 05:26 | PC.NURSE ---
Dr. Zamora notified pt has +IFOB, provider states GI consult does not need to be notified of results at this time (11/25)
[2021-11-26 06:47] LABS: Basophils Percent Auto 0.8 % (0.2-1.2); Eosinophils Absolute Auto 0.1 K/mm3 (0-0.3); Eosinophils Percent Auto 1.3 % (0-4.4); Hematocrit 23.8 % (37.0-47.0); Immature Granulocyte Absolute 0.02 K/mm3 (0.00-0.031); Immature Granulocyte Percent A 0.4 % (0-0.5); Immature Platelet Fraction Pct 9.1 % (0.9-11.2); Lymphocytes Percent Auto 17.2 % (18.3-44.2); Mean Corpuscular HGB Conc 28.2 g/dl (32-36); Mean Corpuscular Hemoglobin 25.6 pg (26-34); Mean Corpuscular Volume 90.8 fl (80-100); Mean Platelet Volume 12.5 fl (7.4-10.4); Monocytes Absolute Auto 0.5 K/mm3 (0.1-0.6); Monocytes Percent Auto 8.6 % (2.6-8.5); Neutrophils Absolute Auto 3.8 K/mm3 (1.3-6.7); Neutrophils Percent Auto 71.7 % (45.5-73.1); Nucleated Red Blood Cells Perc 0.8 % (0.0-0.2); Platelet Count Result 107 k/mm3 (150-375); Red Blood Count 2.62 M/mm3 (4.2-5.4); Red Cell Distribution Width 16.5 % (11.5-14.5); White Blood Count 5.2 K/mm3 (4.5-10.0)
[2021-11-26 06:55] LABS: Anion Gap 9 mmol/L (8-16); Blood Urea Nitrogen 63 mg/dL (7-17); Calcium 8.2 mg/dL (8.4-10.2); Carbon Dioxide 24 mmol/L (22-30); Chloride 104 mmol/L (98-107); Estimated CRCL calculation 10 ml/min; Estimated Glomerular Filt Rate 12; Glucose 92 mg/dL (65-110); Potassium 3.6 mmol/L (3.4-5.0); Sodium 137 mmol/L (137-145)
[2021-11-26 07:34] LABS: Hemoglobin 6.7 g/dL (12.0-15.0)
[2021-11-26 07:42] LABS: Glucose Point of Care 91 mg/dl (65-105)
[2021-11-26 08:11] LABS: Lactate Dehydrogenase 297 U/L (313-618)
--- NOTE | 2021-11-26 08:15 | PM.IMPN ---
Progress Note: A&P Assessment and Plan (1) GI bleed: Code(s): K92.2 - Gastrointestinal hemorrhage, unspecified Status: Acute Assessment and Plan: GI bleed noted per positive occult blood GI consulted EGD scheduled for today Warfarin on hold Protonix BID Continue to trend H/H (2) Acute blood loss anemia: Code(s): D62 - Acute posthemorrhagic anemia Status: Acute Assessment and Plan: Seems to be a GI bleed at this time, as the occult blood was positive H/H low upon admission at 5.8/21.0 PRBC ordered, looks like 1 unit of PRBC given in ED, ordered one more H/H went up to 7.0/24.3, trending down and current 6.7/23.8 H/H one hour post infusion Continue to trend labs Anemia labs ordered Supplement as indicated Transfuse as indicated (3) Hypertension: Code(s): I10 - Essential (primary) hypertension Status: Acute Assessment and Plan: Current BP 186/55 Continue home carvedilol 3.125 Hydralazine 10mg IV Q8HR with parameters Trend blood pressure Adjust therapy as indicated (4) CKD (chronic kidney disease) stage 4, GFR 15-29 ml/min: Code(s): N18.4 - Chronic kidney disease, stage 4 (severe) Status: Acute Assessment and Plan: BUN/Cr 63/3.60 Baseline Cr 2.20-2.60 IV fluids D51/2 NS at 30ml/hr Trend urine output Avoid nephrotoxic medications Trend labs Consider nephro consult if no improvement seen (5) Tobacco dependence: Code(s): F17.200 - Nicotine dependence, unspecified, uncomplicated Status: Acute Assessment and Plan: Smokes 1 PPD for the last 50 years Order patch Smoking cessation encouraged Education given for 10mins (6) COPD (chronic obstructive pulmonary disease): Qualifiers: COPD type: emphysema Emphysema type: unspecified Qualified Code(s): J43.9 - Emphysema, unspecified Code(s): J44.9 - Chronic obstructive pulmonary disease, unspecified Status: Acute Assessment and Plan: Chest xray shows chronic interstitial lung disease History of smoking Does not appear to be in an acute exacerbation Remains on RA Trend SPO2 (7) GERD (gastroesophageal reflux disease): Code(s): K21.9 - Gastro-esophageal reflux disease without esophagitis Status: Acute Assessment and Plan: Continue home Protonix 40mg IV BID (8) CHF (congestive heart failure): Code(s): I50.9 - Heart failure, unspecified Status: Acute Assessment and Plan: Appears to be chronic, most likely diastolic Does not appear to be in exacerbation, and euvolemic Rhochi and edema present will give some lasix IV Above findings probably related to the blood administration Continue home furosemide 40mg PO Daily Continue carvedilol 3.125mg PO BID Trend urine output Daily weights Careful with hydration as she is on IV fluids Change therapy as indicated Harshal yañez (9) Abnormal urinalysis: Code(s): R82.90 - Unspecified abnormal findings in urine Status: Acute Assessment and Plan: UA does appear to be infectious Slightly cloudy yellow urine, 1+ protein, 2+ blood, 2+ leukocyte esterase, WBC 21-30, 4+ Bacteria Ceftriaxone started Culture did not reflux Trend symptoms (10) Hyperlipidemia: Code(s): E78.5 - Hyperlipidemia, unspecified Status: Acute Assessment and Plan: Continue home medications (11) Chronic anticoagulation: Code(s): Z79.01 - retirement (current) use of anticoagulants Status: Acute Assessment and Plan: Secondary to DVT Warfarin at home INR elevated at 3.4 10mg SubQ vit K given in the ED Trend INR Consider additional dose of Vit. K Time Spent With Patient Time with patient: Greater than 35 minutes Subjective Date/time seen: 11/26/21 08:15 Interval history: Patient was ly
--- NOTE | 2021-11-26 08:15 | P.PNIM_ITS ---
Progress Note: A&P Assessment and Plan (1) GI bleed: Code(s): K92.2 - Gastrointestinal hemorrhage, unspecified Status: Acute Assessment and Plan: * GI bleed noted per positive occult blood * GI consulted * EGD scheduled for today * Warfarin on hold * Protonix BID * Continue to trend H/H (2) Acute blood loss anemia: Code(s): D62 - Acute posthemorrhagic anemia Status: Acute Assessment and Plan: * Seems to be a GI bleed at this time, as the occult blood was positive * H/H low upon admission at 5.8/21.0 * PRBC ordered, looks like 1 unit of PRBC given in ED, ordered one more * H/H went up to 7.0/24.3, trending down and current 6.7/23.8 * H/H one hour post infusion * Continue to trend labs * Anemia labs ordered * Supplement as indicated * Transfuse as indicated (3) Hypertension: Code(s): I10 - Essential (primary) hypertension Status: Acute Assessment and Plan: * Current BP 186/55 * Continue home carvedilol 3.125 * Hydralazine 10mg IV Q8HR with parameters * Trend blood pressure * Adjust therapy as indicated (4) CKD (chronic kidney disease) stage 4, GFR 15-29 ml/min: Code(s): N18.4 - Chronic kidney disease, stage 4 (severe) Status: Acute Assessment and Plan: * BUN/Cr 63/3.60 * Baseline Cr 2.20-2.60 * IV fluids D51/2 NS at 30ml/hr * Trend urine output * Avoid nephrotoxic medications * Trend labs * Consider nephro consult if no improvement seen (5) Tobacco dependence: Code(s): F17.200 - Nicotine dependence, unspecified, uncomplicated Status: Acute Assessment and Plan: * Smokes 1 PPD for the last 50 years * Order patch * Smoking cessation encouraged * Education given for 10mins (6) COPD (chronic obstructive pulmonary disease): Qualifiers: COPD type: emphysema Emphysema type: unspecified Qualified Code(s): J43.9 - Emphysema, unspecified Code(s): J44.9 - Chronic obstructive pulmonary disease, unspecified Status: Acute Assessment and Plan: * Chest xray shows chronic interstitial lung disease * History of smoking * Does not appear to be in an acute exacerbation * Remains on RA * Trend SPO2 (7) GERD (gastroesophageal reflux disease): Code(s): K21.9 - Gastro-esophageal reflux disease without esophagitis Status: Acute Assessment and Plan: * Continue home Protonix 40mg IV BID (8) CHF (congestive heart failure): Code(s): I50.9 - Heart failure, unspecified Status: Acute Assessment and Plan: * Appears to be chronic, most likely diastolic * Does not appear to be in exacerbation, and euvolemic * Rhochi and edema present will give some lasix IV * Above findings probably related to the blood administration * Continue home furosemide 40mg PO Daily * Continue carvedilol 3.125mg PO BID * Trend urine output * Daily weights * Careful with hydration as she is on IV fluids * Change therapy as indicated * Harshal yañez (9) Abnormal urinalysis: Code(s): R82.90 - Unspecified abnormal findings in urine Status: Acute Assessment and Plan: * UA does appear to be infectious * Slightly cloudy yellow urine, 1+ protein, 2+ blood, 2+ leukocyte esterase, WBC 21-30, 4+ Bacteria * Ceftriaxone started * Culture did not reflux * Trend symptoms
[2021-11-26 08:18] LABS: Transferrin 284 mg/dL (206-381)
[2021-11-26] MEDS: PANTOPRAZOLE SODIUM IV 40 MG VIAL IV PUSH ×2 (08:27→20:21)
[2021-11-26 08:28] LABS: Prothrombin Time 29.9 Seconds (11.1-14.7)
[2021-11-26 08:33] LABS: Iron 36 ug/dL (37-170)
[2021-11-26 08:42] LABS: NT Pro B Type Natriuretic Pept 12900 pg/mL (5-100)
[2021-11-26 08:43] LABS: Percent Iron Saturation 9 % (20-50)
[2021-11-26 09:23] LABS: Folic Acid 9.4 ng/mL (2.76->20); Vitamin B12 > 1000.0 pg/mL (239-931)
[2021-11-26] MEDS: carvediloL 3.125 MG TABLET PO ×2 (09:57→20:21)
[2021-11-26] MEDS: SERTRALINE HCL 50 MG TABLET PO (09:58)
[2021-11-26] MEDS: PRAVASTATIN SODIUM 20 MG TABLET 40 MG PO (09:58)
[2021-11-26] MEDS: FUROSEMIDE INJ 40 MG/4 ML VIAL IV PUSH (10:05)
[2021-11-26 11:28] LABS: Glucose Point of Care 93 mg/dl (65-105)
--- NOTE | 2021-11-26 11:41 | WPDGICN ---
Assessment and Plan Assessment and plan (1) Anemia: Code(s): D64.9 - Anemia, unspecified Status: Acute Assessment and Plan: Anemia of of uncertain etiology. Likely multifactorial. Given occult blood in stool GI blood loss not excluded. No visible bleeding but occult blood was positive. Patient has a history of gastritis and for this reason EGD will be performed today. We may need to consider a colonoscopy in the future. Anticoagulation will need to be held. (2) Occult blood in stools: Code(s): R19.5 - Other fecal abnormalities Status: Acute Assessment and Plan: Occult blood in stools suggest some component of internal bleeding which may contribute to anemia. Given her history of gastritis several years ago an EGD will be performed. Anticoagulation undoubtedly contributes to this and will need to be held. Colonoscopy may need to be performed electively. (3) Chronic anticoagulation: Code(s): Z79.01 - crew leader gluing (current) use of anticoagulants Status: Acute Assessment and Plan: Patient on chronic anticoagulation which may contribute to her anemia and occult blood in stool will need to be held till is determined to be safe. (4) CKD (chronic kidney disease) stage 4, GFR 15-29 ml/min: Code(s): N18.4 - Chronic kidney disease, stage 4 (severe) Status: Acute Assessment and Plan: Chronic kidney disease with elevated BUN and creatinine this is chronic suggesting chronic kidney disease likely contributes to underlying anemia baseline hemoglobin likely in the 8-8 half range. (5) CHF (congestive heart failure): Code(s): I50.9 - Heart failure, unspecified Status: Acute GI Consult Note Consult date/time: 11/26/21 11:41 HPI: Tamar Bob is a 86 year old female I am asked to see because of occult blood in stool. Patient reports that she felt somewhat weak. For this reason went to her doctor and was seen eventually in the emergency room at [facility]. Patient with noted to be anemic. Hemoglobin of approximately 6.7 whereas her baseline appears to be approximately 8 and half. In the ER she apparently was found to have Hemoccult-positive stools and was transferred to [facility]. Patient denies any obvious blood in her stools. Patient states her bowel habits have been on changed recently. She denies any abdominal pain or signs of bleeding. Patient also was found to have significant azotemia. Patient does require anticoagulation with warfarin at home. Review of old records reveals in 2020 an EGD performed by Dr. Adams revealed gastritis. Family history is noncontributory. Review of Systems Review of Systems: All systems reviewed & are unremarkable except as noted in HPI and below PMFSH Past Medical History Medical History (Updated 11/26/21 @ 11:46 by Naga Sexton MD) CKD (chronic kidney disease) stage 4, GFR 15-29 ml/min Fall Generalized osteoarthritis GERD (gastroesophageal reflux disease) History of COPD Hyperlipidemia Hyperparathyroidism Hypertension Low back pain Major depression, recurrent Osteoporosis Pulmonary nodule Tobacco dependence Surgical History Surgical History H/O vein stripping History of appendectomy History of cholecystectomy Family History Family History Mother Hypertension Breast cancer Sister Asthma Hypertension Father , at age 36 No problems noted. Social History Social History Social History: The patient lives in her own home in [place]. She has smoked 1 pack of cigarettes per day at least for the last 50 years. She has 6 children. She designates her daughter Lisa and [id number] Shiloh as her surrogate decision makers and she wishes to be a full code. Smoking packs per day: 0.
[2021-11-26] MEDS: SODIUM CHLORIDE 0.9% IV 250 ML 30 ML IV CONT (12:20)
--- NOTE | 2021-11-26 13:34 | PC.NURSE ---
On 11/26/21, the student, [Mireille Thomas, Seven Ziegler], provided care and completed [facility] documentation on this patient. I have reviewed the student's documentation and agree with the findings.
[2021-11-26] MEDS: LACTATED RINGERS 1,000 ML 150 ML IV CONT (13:48)
--- NOTE | 2021-11-26 13:50 | WPDANESEPPF ---
Anes - Initial Pre Proc Eval Procedure: Operation Date: 11/26/21 13:30 Proposed Procedures p Esophagogastroduodenoscopy - Naga Sexton MD Date/Time: 11/26/21 13:50 Surgeon: Jael West MD Pre Op Diagnosis: Anemia, Occult and Stool Patient Data Age: 86 Gender: F Height: 1.57 m Weight: 81.5 kg Last Vital Signs Temp 36.2 C L 11/26/21 13:43 Pulse 64 11/26/21 13:43 Resp 16 11/26/21 13:43 BP 174/49 H 11/26/21 13:43 Pulse Ox 93 11/26/21 13:43 Allergies Allergy/AdvReac Type Severity Reaction Status Date / Time No Known Allergies Allergy Mild Verified 11/26/21 13:33 Home Medications Medication Instructions Recorded Confirmed Type pantoprazole 40 mg tablet,delayed 40 mg PO BID #180 tablet 06/03/21 11/25/21 Rx release pravastatin 40 mg PO DAILY 07/06/21 11/25/21 History comp.stocking,knee,long,medium #6 ea 08/16/21 11/25/21 Rx furosemide 20 mg tablet 40 mg PO DAILY tablet 08/16/21 11/25/21 History spironolactone 25 mg tablet 25 mg PO DAILY #90 tablet 08/16/21 11/25/21 Rx comp.stocking,knee,long,medium #7 ea 09/13/21 11/25/21 Rx sertraline 50 mg tablet 50 mg PO DAILY #90 tablet 09/27/21 11/25/21 Rx carvedilol 3.125 mg tablet 3.125 mg PO Q12H #180 tablet 10/25/21 11/25/21 Rx warfarin 3 mg tablet See Rx Instructions .ROUTE 11/26/21 Rx .COMPLEX #30 tablet Laboratory Tests 11/26/21 11/26/21 11/26/21 06:33 06:33 07:38 WBC 5.2 K/mm3 K/mm3 (4.5-10.0) RBC 2.62 M/mm3 L M/mm3 (4.2-5.4) Hgb 6.7 g/dL L* D g/dL (12.0-15.0) Hct 23.8 % L % (37.0-47.0) MCV 90.8 fl fl (80-100) MCH 25.6 pg L pg (26-34) MCHC 28.2 g/dl L g/dl (32-36) RDW 16.5 % H % (11.5-14.5) Plt Count 107 k/mm3 L k/mm3 (150-375) MPV 12.5 fl H fl (7.4-10.4) Immature Gran % (Auto) 0.4 % % (0-0.5) Neut % (Auto) 71.7 % % (45.5-73.1) Lymph % (Auto) 17.2 % L % (18.3-44.2) Grant % (Auto) 8.6 % H % (2.6-8.5) Eos % (Auto) 1.3 % % (0-4.4) Baso % (Auto) 0.8 % % (0.2-1.2) Lymph # (Auto) 0.90 K/mm3 K/mm3 (0.9-3.2) Grant # (Auto) 0.5 K/mm3 K/mm3 (0.1-0.6) Eos # (Auto) 0.1 K/mm3 K/mm3 (0-0.3) Baso # (Auto) 0.0 K/mm3 K/mm3 (0.0-0.1) Abs Immat Gran (auto) 0.02 K/mm3 K/mm3 (0.00-0.031) Absolute Neuts (auto) 3.8 K/mm3 K/mm3 (1.3-6.7) Absolute Nucleated RBC 0.0 K/mm3 K/mm3 (0.0-0.012) Nucleated RBC % 0.8 % H % (0.0-0.2) % Immature Plt Fraction 9.1 % % (0.9-11.2) PT INR Sodium 137 mmol/L mmol/L (137-145) Potassium 3.6 mmol/L mmol/L (3.4-5.0) Chloride 104 mmol/L mmol/L (98-107) Carbon Dioxide 24 mmol/L mmol/L (22-30) Anion Gap 9 mmol/L mmol/L (8-16) BUN 63 mg/dL H D mg/dL (7-17) Creatinine 3.60 mg/dL H mg/dL (0.7-1.0) Estim Creat Clear Calc 10 ml/min ml/min Estimated GFR 12 L (59 - ) Glucose 92 mg/dL mg/dL (65-110) POC Capillary Glucose 91 mg/dl mg/dl (65-105) Calcium 8.2 mg/dL L mg/dL (8.4-10.2) Iron TIBC % Saturation Transferrin Ferritin Lactate Dehydrogenase NT-Pro-B Natriuret Pep Vitamin B12 Folate TSH (Reflex) Blood Type Antibody Screen Crossmatch 11/26/21 11/26/21 11/26/21 07:43 07:43 07:43 WBC RBC Hgb Hct MCV MCH MCHC RDW Plt Count MPV Immature Gran % (Auto) Neut % (Auto) Lymph % (Auto) Grant % (Auto) Eos % (Auto) Baso % (Auto)
[2021-11-26] MEDS: BENZOCAINE (*SP) 60 ML SPRAY CAN (HURRICAINE) 1 SPRAY MUCOUS MEM (13:55)
[2021-11-26 16:50] LABS: Hemoglobin 8.2 g/dL (12.0-15.0)
[2021-11-26] MEDS: PANTOPRAZOLE 40 MG TABLET PO (18:18)
[2021-11-26] MEDS: hydrALAZINE HCL 20 MG/ML VIAL 10 MG IV PUSH (20:20)
[2021-11-27] VITALS (9 sets, daily range): BP systolic 136–164; BP diastolic 44–63; PULSE 50–80; RESP 16–26; TEMP 36.3–37.1; O2SAT 92–97
[2021-11-27] MEDS: DEXTROSE 5%/0.45% SOD CHL 1,000 ML 30 ML IV CONT (00:46)
[2021-11-27 05:35] LABS: Basophils Percent Auto 0.3 % (0.2-1.2); Eosinophils Absolute Auto 0.1 K/mm3 (0-0.3); Eosinophils Percent Auto 1.3 % (0-4.4); Hematocrit 27.2 % (37.0-47.0); Immature Granulocyte Absolute 0.03 K/mm3 (0.00-0.031); Immature Granulocyte Percent A 0.4 % (0-0.5); Immature Platelet Fraction Pct 9.3 % (0.9-11.2); Lymphocytes Absolute Auto 0.63 K/mm3 (0.9-3.2); Lymphocytes Percent Auto 9.4 % (18.3-44.2); Mean Corpuscular HGB Conc 29.4 g/dl (32-36); Mean Corpuscular Volume 88.3 fl (80-100); Mean Platelet Volume 12.2 fl (7.4-10.4); Monocytes Absolute Auto 0.5 K/mm3 (0.1-0.6); Monocytes Percent Auto 7.9 % (2.6-8.5); Neutrophils Absolute Auto 5.4 K/mm3 (1.3-6.7); Neutrophils Percent Auto 80.7 % (45.5-73.1); Nucleated Red Blood Cells Perc 0.3 % (0.0-0.2); Platelet Count Result 99 k/mm3 (150-375); Red Blood Count 3.08 M/mm3 (4.2-5.4); Red Cell Distribution Width 16.8 % (11.5-14.5); White Blood Count 6.7 K/mm3 (4.5-10.0)
[2021-11-27 05:44] LABS: Alanine Aminotransferase 9 U/L (4-35); Albumin Level 3.3 g/dL (3.5-5.1); Alkaline Phosphatase 81 U/L (38-126); Anion Gap 7 mmol/L (8-16); Aspartate Amino Transferase 25 U/L (14-36); Bilirubin,Total 0.9 mg/dL (0.2-1.3); Blood Urea Nitrogen 56 mg/dL (7-17); Calcium 8.2 mg/dL (8.4-10.2); Carbon Dioxide 26 mmol/L (22-30); Chloride 104 mmol/L (98-107); Estimated CRCL calculation 12 ml/min; Estimated Glomerular Filt Rate 14; Glucose 100 mg/dL (65-110); Magnesium 2.1 mg/dL (1.6-2.3); Potassium 3.3 mmol/L (3.4-5.0); Sodium 137 mmol/L (137-145)
[2021-11-27 05:45] LABS: INR 1.9; Prothrombin Time 20.7 Seconds (11.1-14.7)
--- NOTE | 2021-11-27 09:12 | WPDGIPROGNO ---
Progress Note: A&P Assessment and Plan (1) Anemia: Code(s): D64.9 - Anemia, unspecified Status: Acute Assessment and Plan: Anemia is likely multifactorial. However patient found to have active bleeding from gastric ulcer also noted to have gastric AVMs by EGD yesterday. Hemoglobin stable at present after cautery. Plan to monitor hemoglobin after discharge. She may need transfusion if it declines. (2) Gastric ulcer: Code(s): K25.9 - Gastric ulcer, unspecified as acute or chronic, without hemorrhage or perforation Status: Acute Assessment and Plan: Gastric ulcers and AVMs identified by EGD. Now status post cautery. Patient should avoid NSAIDs. Long-term PPI use advised. Patient will not be able to tolerate anticoagulation given these findings. The should be discontinued. Follow-up CBC after discharge encourage. Advance diet today. Discharge when hemoglobin stable diet tolerated. (3) Gastric AVM: Code(s): K31.819 - Angiodysplasia of stomach and duodenum without bleeding Status: Acute Assessment and Plan: Status post cautery with APC yesterday. Gastric AVMs are concerned because she may have additional AVMs distally in the small bowel. Long-term avoidance of anticoagulation would be preferable. (4) Chronic anticoagulation: Code(s): Z79.01 - prison (current) use of anticoagulants Status: Acute Subjective Date/time seen: 11/27/21 09: Patient alert comfortable this morning. Denies abdominal pain. Tolerating diet. No signs of additional bleeding. Review of Systems Review of Systems: All systems reviewed & are unremarkable except as noted in HPI and below Exam Narrative: Physical exam reveals patient be alert comfortable at rest. HEENT exam reveals no icterus. Lungs are clear. Heart without murmur. Abdomen bowel sounds present soft nontender. Objective Data Vital Signs Vital Signs: Vital Signs - 24 hr 11/26/21 09:57 11/26/21 12:22 11/26/21 12:38 Temperature 97.9 F 97.8 F Pulse Rate 65 58 L 60 Respiratory Rate 16 16 Blood Pressure 157/42 H 173/45 H Pulse Oximetry 92 93 11/26/21 13:38 11/26/21 13:43 11/26/21 14:12 Temperature 96.9 F L 97.2 F L Pulse Rate 64 64 57 L Respiratory Rate 16 16 22 H Blood Pressure 186/45 H 174/49 H 129/85 Pulse Oximetry 92 93 100 11/26/21 14:22 11/26/21 14:32 11/26/21 16:06 Temperature 97.9 F Pulse Rate 54 L 63 81 Respiratory Rate 24 H 23 H 16 Blood Pressure 183/73 H 166/69 H 159/79 H Pulse Oximetry 97 95 97 11/26/21 20:00 11/26/21 20:21 11/27/21 00:00 Temperature 97.3 F L 97.6 F Pulse Rate 60 60 80 Respiratory Rate 18 18 Blood Pressure 189/46 H 150/45 H Pulse Oximetry 96 96 11/27/21 04:00 Temperature 97.4 F L Pulse Rate 61 Respiratory Rate 16 Blood Pressure 164/44 H Pulse Oximetry 94 Intake/Output Intake/Output: Intake & Output 11/24/21 11/25/21 11/26/21 11/27/21 23:59 23:59 23:59 23:59 Intake Total 950 1490 Output Total 1250 Balance -300 1490 Meds/Results Medications: Active Medications Generic Name Dose Route Start Last Admin Trade Name Freq PRN Reason Stop Dose Admin Carvedilol 3.125 mg 11/26/21 09:00 11/26/21 20:21 Carvedilol 3.125 Mg Tablet PO 3.125 mg Q12HR JUAN Administration Hydralazine HCl 10 mg 11/26/21 09:19 11/26/21 20:20 Hydralazine Hcl 20 Mg/Ml Vial IV PUSH 10 mg Q8H PRN Administration Blood Pressure - High Dextrose/Sodium Chloride 1,000 mls @ 30 mls/hr 11/26/21 00:45 11/27/21 00:46 Dextrose 5% Sodium Chloride 0.45% IV CONT 30 mls/hr .Q24H JUAN Administration Ceftriaxone Sodium/Dextrose 1 gm in 50 mls @ 100 mls/hr 11/26/21 01:05 11/26/21 20:50 Rocephin 1 Gm/D5w 50 Ml IVPB Infused DAILY@2100 JUAN Infusion Magnesium Hydroxide 30 ml 11/26/21 00:43 Magnesium Hydroxide Susp 30 Ml Udc PO DAILY PRN Constipation Morphine Sulfate 1 mg 11/26/21 00:43 Morphine Sulfate (
[2021-11-27] MEDS: PANTOPRAZOLE 40 MG TABLET PO ×2 (09:21→17:36)
[2021-11-27] MEDS: carvediloL 3.125 MG TABLET PO ×2 (09:21→20:11)
[2021-11-27] MEDS: SERTRALINE HCL 50 MG TABLET PO (09:21)
[2021-11-27] MEDS: PRAVASTATIN SODIUM 20 MG TABLET 40 MG PO (09:21)
--- NOTE | 2021-11-27 11:01 | PM.IMPN ---
Progress Note: A&P Assessment and Plan (1) Acute blood loss anemia: Code(s): D62 - Acute posthemorrhagic anemia Status: Acute Assessment and Plan: Patient underwent EGD yesterday that showed gastric ulcers and AVMs. Patient underwent cautery and has been doing well throughout the night. Hemoglobin and hematocrit appear stable at this time. Gastroenterology would appreciate holding all NSAIDs and patient's Coumadin at this time. Will continue to hold Coumadin and primary care [facility] [place] [facility] committee decision if need to be restarted later date. Patient was on Coumadin for DVT that was diagnosed in 10/21/2019. Patient states that she had only had 1 DVT that she is aware of and she has not had multiple episodes. (2) CKD (chronic kidney disease) stage 4, GFR 15-29 ml/min: Code(s): N18.4 - Chronic kidney disease, stage 4 (severe) Status: Acute Assessment and Plan: Patient's BUN and creatinine are slowly trending down. It appears her baseline last year was 2.6. Patient's Lasix and Aldactone are on hold at this time. Will continue to monitor laboratories and add medications back and as kidney function allow. (3) GERD (gastroesophageal reflux disease): Code(s): K21.9 - Gastro-esophageal reflux disease without esophagitis Status: Acute Assessment and Plan: Continue PPI (4) UTI (urinary tract infection): Code(s): N39.0 - Urinary tract infection, site not specified Status: Deleted Assessment and Plan: Started on Rocephin will await culture and sensitivity reports. (5) CHF (congestive heart failure): Code(s): I50.9 - Heart failure, unspecified Status: Acute Assessment and Plan: Patient continues to remain euvolemic at this time. 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 Will have p.r.n. albuterol treatments for any wheezing or shortness of breath. Subjective Date/time seen: 11/27/21 11:01 Patient resting in bed denies any complaints. Patient states she is feeling fine and has had no nausea or vomiting throughout the evening. Patient denies any abdominal pain, constipation, nausea, vomiting, or diarrhea. Patient denies any chest pain, shortness Jacob, lightheadedness, dizziness, syncopal or near syncopal episodes. Patient has received 2 units packed red blood cells during this admission which has significantly improved her H&H. Review of Systems Review of Systems: A 12 point review of systems was completed patient all pertinent positive and negative per HPI the remainder are unremarkable. Objective Data Vital Signs Vital Signs: Vital Signs - 24 hr 11/26/21 12:22 11/26/21 12:38 11/26/21 13:38 Temperature 36.6 C 36.6 C 36.1 C L Pulse Rate 58 L 60 64 Respiratory Rate 16 16 16 Blood Pressure 157/42 H 173/45 H 186/45 H Pulse Oximetry 92 93 92 11/26/21 13:43 11/26/21 14:12 11/26/21 14:22 Temperature 36.2 C L Pulse Rate 64 57 L 54 L Respiratory Rate 16 22 H 24 H Blood Pressure 174/49 H 129/85 183/73 H Pulse Oximetry 93 100 97 11/26/21 14:32 11/26/21 16:06 11/26/21 20:00 Temperature 36.6 C 36.3 C L Pulse Rate 63 81 60 Respiratory Rate 23 H 16 18 Blood Pressure 166/69 H 159/79 H 189/46 H Pulse Oximetry 95 97 96 11/26/21 20:21 11/27/21 00:00 11/27/21 04:00 Temperature 36.4 C 36.3 C L Pulse Rate 60 80 61 Respiratory Rate 18 16 Blood Pressure 150/45 H 164/44 H
[2021-11-27] MEDS: POTASSIUM CHLORIDE 20 MEQ PACKET (FOR LIQUID) PO (11:30)
[2021-11-28] VITALS (8 sets, daily range): BP systolic 128–154; BP diastolic 40–60; PULSE 52–64; RESP 16–20; TEMP 36.1–37.2; O2SAT 91–100
[2021-11-28 05:13] LABS: Basophils Percent Auto 0.4 % (0.2-1.2); Eosinophils Absolute Auto 0.2 K/mm3 (0-0.3); Hematocrit 25.5 % (37.0-47.0); Hemoglobin 7.4 g/dL (12.0-15.0); Immature Granulocyte Absolute 0.03 K/mm3 (0.00-0.031); Immature Granulocyte Percent A 0.4 % (0-0.5); Immature Platelet Fraction Pct 8.2 % (0.9-11.2); Lymphocytes Percent Auto 12.3 % (18.3-44.2); Mean Corpuscular Volume 89.5 fl (80-100); Mean Platelet Volume 12.2 fl (7.4-10.4); Monocytes Absolute Auto 0.7 K/mm3 (0.1-0.6); Monocytes Percent Auto 9.7 % (2.6-8.5); Neutrophils Absolute Auto 5.5 K/mm3 (1.3-6.7); Neutrophils Percent Auto 75.2 % (45.5-73.1); Nucleated Red Blood Cells Perc 0.3 % (0.0-0.2); Platelet Count Result 93 k/mm3 (150-375); Red Blood Count 2.85 M/mm3 (4.2-5.4); Red Cell Distribution Width 16.8 % (11.5-14.5); White Blood Count 7.3 K/mm3 (4.5-10.0)
[2021-11-28 05:27] LABS: Anion Gap 6 mmol/L (8-16); Blood Urea Nitrogen 50 mg/dL (7-17); Carbon Dioxide 26 mmol/L (22-30); Chloride 105 mmol/L (98-107); Estimated CRCL calculation 13 ml/min; Estimated Glomerular Filt Rate 15; Glucose 111 mg/dL (65-110); Potassium 3.4 mmol/L (3.4-5.0); Sodium 137 mmol/L (137-145)
[2021-11-28] MEDS: DEXTROSE 5%/0.45% SOD CHL 1,000 ML 30 ML IV CONT (09:29)
[2021-11-28] MEDS: PRAVASTATIN SODIUM 20 MG TABLET 40 MG PO (09:30)
[2021-11-28] MEDS: PANTOPRAZOLE 40 MG TABLET PO ×2 (09:30→16:56)
[2021-11-28] MEDS: SERTRALINE HCL 50 MG TABLET PO (09:30)
[2021-11-28] MEDS: carvediloL 3.125 MG TABLET PO ×2 (09:30→20:38)
--- NOTE | 2021-11-28 09:42 | PM.IMPN ---
Progress Note: A&P Assessment and Plan (1) Acute blood loss anemia: Code(s): D62 - Acute posthemorrhagic anemia Status: Acute Assessment and Plan: - Patient underwent EGD that showed gastric ulcers and AVMs. Cautery was performed and pt. has been doing well. - Hemoglobin and hematocrit have been slowly declining since. - Gastroenterology would appreciate holding all NSAIDs and patient's Coumadin at this time. Will continue to hold Coumadin and PCP can make the decision if need to be restarted later date. (Patient was on Coumadin for DVT that was diagnosed in 10/21/2019. Patient states that she had only had 1 DVT that she is aware of and she has not had multiple episodes.) - Steady decline in Hgb today from 8.0 to 7.4. Will recheck in AM. (2) CKD (chronic kidney disease) stage 4, GFR 15-29 ml/min: Code(s): N18.4 - Chronic kidney disease, stage 4 (severe) Status: Acute Assessment and Plan: - Patient's BUN and creatinine are slowly trending down. It appears her baseline last year was 2.6. Today she is at 2.9/50 with a GFR of 15. - Patient's Lasix and Aldactone are on hold at this time. Pt. appears euvolemic - Will continue to monitor laboratories and add medications back and as kidney function allow. - Avoid nephrotoxic agents as much as possible. (3) GERD (gastroesophageal reflux disease): Qualifiers: Esophagitis presence: esophagitis presence not specified Qualified Code(s): K21.9 - Gastro-esophageal reflux disease without esophagitis Code(s): K21.9 - Gastro-esophageal reflux disease without esophagitis Status: Acute Assessment and Plan: - Continue PPI long-term as advised by GI. (4) UTI (urinary tract infection): Qualifiers: Urinary tract infection type: site unspecified Hematuria presence: without hematuria Qualified Code(s): N39.0 - Urinary tract infection, site not specified Code(s): N39.0 - Urinary tract infection, site not specified Status: Deleted Assessment and Plan: - Discontinuing abx as pt. is asymptomatic and there is no documented UA or Urine culture noted in the chart. (5) CHF (congestive heart failure): Qualifiers: Heart failure type: unspecified Heart failure chronicity: unspecified Qualified Code(s): I50.9 - Heart failure, unspecified Code(s): I50.9 - Heart failure, unspecified Status: Acute Assessment and Plan: - Patient continues to remain euvolemic at this time. Once patient's kidney function has trended back down to baseline will restart patient's Lasix and Aldactone. 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 Will have p.r.n. albuterol treatments for any wheezing or shortness of breath. Time Spent With Patient Time with patient: 15 - 25 minutes Subjective Date/time seen: 11/28/21 0800 This pt. was examined at the bedside in interval assessment. She reports that she has no complaints of pain today, she has no heartburn, but does feel a bit weak. She is sitting at the bedside upon my entry into the room eating her breakfast. She has no acute findings of distress, N/V throughout the evening. She has no CP, Dyspnea, dizziness, lightheadedness, headache. She received two units of PRBC's on 11/26/21 when her Hgb was found to be at 6.7. She underwent endoscopy and had cauterization of bleeding AVC's as well as ulcerations. Since receiving her transfusion, however, her Hgb levels have been trending downward, 8.2-->8.0-->7
[2021-11-29] VITALS (8 sets, daily range): BP systolic 127–161; BP diastolic 40–62; PULSE 55–112; RESP 16–24; TEMP 36.2–37.1; O2SAT 93–98
[2021-11-29 05:24] LABS: Basophils Percent Auto 0.5 % (0.2-1.2); Eosinophils Absolute Auto 0.2 K/mm3 (0-0.3); Hematocrit 25.9 % (37.0-47.0); Hemoglobin 7.4 g/dL (12.0-15.0); Immature Granulocyte Absolute 0.02 K/mm3 (0.00-0.031); Immature Granulocyte Percent A 0.3 % (0-0.5); Lymphocytes Absolute Auto 0.94 K/mm3 (0.9-3.2); Lymphocytes Percent Auto 12.6 % (18.3-44.2); Mean Corpuscular HGB Conc 28.6 g/dl (32-36); Mean Corpuscular Hemoglobin 25.3 pg (26-34); Mean Corpuscular Volume 88.4 fl (80-100); Mean Platelet Volume 11.9 fl (7.4-10.4); Monocytes Absolute Auto 0.7 K/mm3 (0.1-0.6); Monocytes Percent Auto 9.4 % (2.6-8.5); Neutrophils Absolute Auto 5.6 K/mm3 (1.3-6.7); Neutrophils Percent Auto 75.2 % (45.5-73.1); Platelet Count Result 90 k/mm3 (150-375); Red Blood Count 2.93 M/mm3 (4.2-5.4); Red Cell Distribution Width 16.8 % (11.5-14.5); White Blood Count 7.5 K/mm3 (4.5-10.0)
[2021-11-29 05:34] LABS: Alanine Aminotransferase 9 U/L (4-35); Albumin Level 3.3 g/dL (3.5-5.1); Alkaline Phosphatase 73 U/L (38-126); Anion Gap 8 mmol/L (8-16); Aspartate Amino Transferase 21 U/L (14-36); Bilirubin,Total 0.7 mg/dL (0.2-1.3); Blood Urea Nitrogen 49 mg/dL (7-17); Calcium 7.7 mg/dL (8.4-10.2); Carbon Dioxide 24 mmol/L (22-30); Chloride 105 mmol/L (98-107); Estimated CRCL calculation 15 ml/min; Estimated Glomerular Filt Rate 19; Glucose 108 mg/dL (65-110); Magnesium 2.2 mg/dL (1.6-2.3); Potassium 3.7 mmol/L (3.4-5.0); Sodium 137 mmol/L (137-145)
[2021-11-29 05:40] LABS: INR 1.5; Prothrombin Time 17.8 Seconds (11.1-14.7)
[2021-11-29 05:44] LABS: Anisocytosis 1+ (NORMAL); Ovalocytes 1+ (NORMAL); Platelet Estimate Decreased (Adequate)
--- NOTE | 2021-11-29 06:54 | PM.DS ---
DS: Admitting Diagnosis Discharge Date 11/29/2021 Admitting Diagnosis 1) Acute Blood Loss Anemia 2) CKD Stage 4, GFR 15-29 3) GERD 4) UTI 5) CHF 6) Tobacco Dependence DS: Discharge Diagnosis Discharge Diagnosis (1) Acute blood loss anemia: Code(s): D62 - Acute posthemorrhagic anemia Status: Acute Assessment and Plan: - Patient underwent EGD that showed gastric ulcers and AVMs. Cautery was performed and pt. has been doing well. - Hemoglobin and hematocrit have been slowly declining since. - Gastroenterology would appreciate holding all NSAIDs and patient's Coumadin at this time. Will continue to hold Coumadin and PCP can make the decision if need to be restarted later date. (Patient was on Coumadin for DVT that was diagnosed in 10/21/2019. Patient states that she had only had 1 DVT that she is aware of and she has not had multiple episodes.) - Steady decline in Hgb today from 8.0 to 7.4. Will recheck in AM. - Hgb is stable at 7.4 today and there are no signs of overt bleeding present. (2) CKD (chronic kidney disease) stage 4, GFR 15-29 ml/min: Code(s): N18.4 - Chronic kidney disease, stage 4 (severe) Status: Acute Assessment and Plan: - Patient's BUN and creatinine are slowly trending down. It appears her baseline last year was 2.6. Today she is at 2.9/50 with a GFR of 15. - Patient's Lasix and Aldactone are on hold at this time. Pt. appears euvolemic - Will continue to monitor laboratories and add medications back and as kidney function allow. - Avoid nephrotoxic agents as much as possible. - Creatinine is now within baseline of 2.4, with a GFR of 15. She will be clear to follow up with PCP/Nephrology. (3) GERD (gastroesophageal reflux disease): Qualifiers: Esophagitis presence: esophagitis presence not specified Qualified Code(s): K21.9 - Gastro-esophageal reflux disease without esophagitis Code(s): K21.9 - Gastro-esophageal reflux disease without esophagitis Status: Acute Assessment and Plan: - Continue PPI fpc as advised by GI. (4) UTI (urinary tract infection): Qualifiers: Hematuria presence: without hematuria Urinary tract infection type: site unspecified Qualified Code(s): N39.0 - Urinary tract infection, site not specified Code(s): N39.0 - Urinary tract infection, site not specified Status: Deleted Assessment and Plan: - Discontinuing abx as pt. is asymptomatic and there is no documented UA or Urine culture noted in the chart. (5) CHF (congestive heart failure): Qualifiers: Heart failure chronicity: unspecified Heart failure type: unspecified Qualified Code(s): I50.9 - Heart failure, unspecified Code(s): I50.9 - Heart failure, unspecified Status: Acute Assessment and Plan: - Patient continues to remain euvolemic at this time. Kidney function has improved and will restart Lasix and Spironolactone on discharge. 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 Will have p.r.n. albuterol treatments for any wheezing or shortness of breath. DS: Summary Hospital Course Reason for hospitalization: GI Bleed and acute on chronic anemia. Hospital Course: This 86 year old female patient with past medical history significant for congestive heart failure, diastolic dysfunction, chronic kidney disease, hypertension, DVT, anticoagulated, gastroesophageal reflux disease presented to the ER on 11/25/21 with compla
[2021-11-29] MEDS: carvediloL 3.125 MG TABLET PO ×2 (08:10→20:12)
[2021-11-29] MEDS: PANTOPRAZOLE 40 MG TABLET PO ×2 (08:11→17:26)
[2021-11-29] MEDS: SERTRALINE HCL 50 MG TABLET PO (08:11)
[2021-11-29] MEDS: PRAVASTATIN SODIUM 20 MG TABLET 40 MG PO (08:11)
[2021-11-29] MEDS: ALBUTEROL SULFATE (*SP) AEROSOL 1 PUFF 2 PUFF INHALATION (17:50)
[2021-11-29] MEDS: DEXTROSE 5%/0.45% SOD CHL 1,000 ML 30 ML IV CONT (18:22)
[2021-11-30 00:16] VITALS: BP 137/48; PULSE 66; RESP 20; TEMP 36.3; O2SAT 90
[2021-11-30 05:09] VITALS: BP 137/48; PULSE 63; RESP 22; TEMP 36.1; O2SAT 93
[2021-11-30 05:55] LABS: Basophils Percent Auto 0.5 % (0.2-1.2); Eosinophils Absolute Auto 0.2 K/mm3 (0-0.3); Eosinophils Percent Auto 2.2 % (0-4.4); Hematocrit 24.8 % (37.0-47.0); Hemoglobin 7.1 g/dL (12.0-15.0); Immature Granulocyte Absolute 0.04 K/mm3 (0.00-0.031); Immature Granulocyte Percent A 0.5 % (0-0.5); Immature Platelet Fraction Pct 8.7 % (0.9-11.2); Lymphocytes Absolute Auto 1.07 K/mm3 (0.9-3.2); Lymphocytes Percent Auto 14.1 % (18.3-44.2); Mean Corpuscular HGB Conc 28.6 g/dl (32-36); Mean Corpuscular Hemoglobin 25.4 pg (26-34); Mean Corpuscular Volume 88.9 fl (80-100); Mean Platelet Volume 12.3 fl (7.4-10.4); Monocytes Absolute Auto 0.8 K/mm3 (0.1-0.6); Monocytes Percent Auto 10.5 % (2.6-8.5); Neutrophils Absolute Auto 5.5 K/mm3 (1.3-6.7); Neutrophils Percent Auto 72.2 % (45.5-73.1); Platelet Count Result 79 k/mm3 (150-375); Red Blood Count 2.79 M/mm3 (4.2-5.4); White Blood Count 7.6 K/mm3 (4.5-10.0)
[2021-11-30 06:20] LABS: Anisocytosis 2+ (NORMAL); Hypochromasia 2+ (NORMAL); Large Platelets Present; Platelet Estimate Decreased (Adequate)
[2021-11-30] MEDS: PANTOPRAZOLE 40 MG TABLET PO (08:02)
[2021-11-30] MEDS: SERTRALINE HCL 50 MG TABLET PO (08:02)
[2021-11-30] MEDS: carvediloL 3.125 MG TABLET PO (08:02)
[2021-11-30] MEDS: PRAVASTATIN SODIUM 20 MG TABLET 40 MG PO (08:02)
--- NOTE | 2021-11-30 08:08 | PCOTNOTE ---
Attempted to see patient at 08:06 am this date. Patient currently eating breakfast, declined ADLs at this time.
[2021-11-30 10:00] VITALS: BP 137/40; PULSE 64; RESP 19; TEMP 36; O2SAT 97
[2021-11-30 10:36] LABS: Basophils Absolute Auto 0.1 K/mm3 (0.0-0.1); Basophils Percent Auto 0.7 % (0.2-1.2); Eosinophils Absolute Auto 0.1 K/mm3 (0-0.3); Eosinophils Percent Auto 1.6 % (0-4.4); Hematocrit 29.1 % (37.0-47.0); Immature Granulocyte Absolute 0.04 K/mm3 (0.00-0.031); Immature Granulocyte Percent A 0.5 % (0-0.5); Lymphocytes Absolute Auto 0.82 K/mm3 (0.9-3.2); Lymphocytes Percent Auto 9.8 % (18.3-44.2); Mean Corpuscular HGB Conc 27.5 g/dl (32-36); Mean Corpuscular Hemoglobin 26.1 pg (26-34); Mean Corpuscular Volume 95.1 fl (80-100); Mean Platelet Volume 12.7 fl (7.4-10.4); Monocytes Absolute Auto 0.7 K/mm3 (0.1-0.6); Monocytes Percent Auto 8.7 % (2.6-8.5); Neutrophils Absolute Auto 6.6 K/mm3 (1.3-6.7); Neutrophils Percent Auto 78.7 % (45.5-73.1); Platelet Count Result 90 k/mm3 (150-375); Red Blood Count 3.06 M/mm3 (4.2-5.4); Red Cell Distribution Width 17.5 % (11.5-14.5); White Blood Count 8.4 K/mm3 (4.5-10.0)
[2021-11-30 10:55] LABS: Anisocytosis 2+ (NORMAL); Hypochromasia 1+ (NORMAL); Platelet Estimate Decreased (Adequate)
--- NOTE | 2021-11-30 11:05 | PCOTNOTE ---
Attempted to see patient for OT, Maybe later. Will attempt again this PM.
[2021-11-30 12:39] LABS: EDCOVIDSCREEN Negative (Negative)
--- NOTE | 2021-11-30 13:03 | WPDGIPROGNO ---
Progress Note: A&P Assessment and Plan (1) Gastric ulcer: Code(s): K25.9 - Gastric ulcer, unspecified as acute or chronic, without hemorrhage or perforation Status: Acute Assessment and Plan: Gastric ulcer identified at time of endoscopy was source of bleeding. Patient should avoid NSAIDs. Okay for 1 baby aspirin a day because of heart. continue PPI long-term. May need follow-up CBC after discharge. (2) Gastric AVM: Code(s): K31.819 - Angiodysplasia of stomach and duodenum without bleeding Status: Acute Assessment and Plan: Gastric AVM identified at endoscopy may also contribute to her recent upper GI bleeding. Now status post cautery. Suggest monitoring hemoglobin after discharge. (3) Anemia: Code(s): D64.9 - Anemia, unspecified Status: Acute Assessment and Plan: Low hemoglobin likely multifactorial. Undoubtedly recent upper GI bleeding was significant contributing factor. Monitoring CBC intermittently as an outpatient encouraged. (4) Chronic anticoagulation: Code(s): Z79.01 - [employer] (current) use of anticoagulants Status: Acute Assessment and Plan: Agree with holding anticoagulation. This particularly because recent upper GI blood loss. Patient family state anticoagulation was with because of 1 episode of a DVT many years ago. Likely this can be discontinued at this time. Subjective Date/time seen: 11/30/21 13:03 Patient doing well. Eating well without difficulty. No signs of additional bleeding. Review of Systems Review of Systems: All systems reviewed & are unremarkable except as noted in HPI and below Exam Narrative: Patient alert. Comfortable at rest. HEENT exam unremarkable. Abdomen soft nontender with no organomegaly. Objective Data Vital Signs Vital Signs: Vital Signs - 24 hr 11/29/21 14:05 11/29/21 18:05 11/29/21 20:00 Temperature 97.8 F 98.8 F Pulse Rate 58 L 112 H 80 Respiratory Rate 16 24 H 24 H Blood Pressure 145/62 H 138/56 L Pulse Oximetry 98 96 96 11/29/21 20:12 11/29/21 21:38 11/30/21 00:16 Temperature 97.2 F L 97.4 F L Pulse Rate 80 57 L 66 Respiratory Rate 18 20 Blood Pressure 161/57 H 137/48 L Pulse Oximetry 95 90 11/30/21 05:09 11/30/21 10:00 Temperature 96.9 F L 96.8 F L Pulse Rate 63 64 Respiratory Rate 22 H 19 Blood Pressure 137/48 L 137/40 L Pulse Oximetry 93 97 Intake/Output Intake/Output: Intake & Output 11/27/21 11/28/21 11/29/21 11/30/21 23:59 23:59 23:59 23:59 Intake Total 2140 2230 1695 215 Output Total 400 550 Balance 2140 1830 1145 215 Meds/Results Medications: Active Medications Generic Name Dose Route Start Last Admin Trade Name Freq PRN Reason Stop Dose Admin Albuterol 2 puff 11/27/21 11:39 11/29/21 17:50 Albuterol Sulfate (*Sp) Aerosol 1 Puff INHALATION 2 puff Q6HRT PRN Administration Shortness Of Breath Or Wheezing Carvedilol 3.125 mg 11/26/21 09:00 11/30/21 08:02 Carvedilol 3.125 Mg Tablet PO 3.125 mg Q12HR JUAN Administration Hydralazine HCl 10 mg 11/26/21 09:19 11/26/21 20:20 Hydralazine Hcl 20 Mg/Ml Vial IV PUSH 10 mg Q8H PRN Administration Blood Pressure - High Dextrose/Sodium Chloride 1,000 mls @ 30 mls/hr 11/26/21 00:45 11/29/21 18:22 Dextrose 5% Sodium Chloride 0.45% IV CONT 30 mls/hr .Q24H JUAN Administration Magnesium Hydroxide 30 ml 11/26/21 00:43 Magnesium Hydroxide Susp 30 Ml Udc PO DAILY PRN Constipation Morphine Sulfate 1 mg 11/26/21 00:43 Morphine Sulfate (*Crx) 2 Mg/Ml Inj IV PUSH Q4H PRN Pain Rated 7-10 Ondansetron HCl 4 mg 11/26/21 00:43 Ondansetron Inj 4 Mg/2 Ml Vial IV PUSH Q6H PRN Nausea And Vomiting Pantoprazole Sodium 40 mg 11/26/21 09:00 11/30/21 08:02 Pantoprazole 40 Mg Tablet PO 40 mg BID JUAN Administration Pravastatin Sodium 40 mg 11/26/21 09:00 11/30/21 08:02 Pravastatin Sodium 20 Mg T
== END 2021-11-30 14:22 | DRG 378 ==
PROVIDERS: Family Medicine; Internal Medicine Gastroenterology; Nurse Practitioner; Nurse Practitioner Adult Health; Admitting Provider Internal Medicine; PCP Family Medicine; Visit Provider Nurse Practitioner Adult Health
PROC: 0DJ08ZZ Inspection of Upper Intestinal Tract, Via Natural or Artificial Opening Endoscopic (ICD-10-PCS; CPT 43235; principal; 2021-11-26 13:30)
DX: K25.0 Acute gastric ulcer with hemorrhage (principal); N18.4 Chronic kidney disease, stage 4 (severe); I13.0 Hypertensive heart and chronic kidney disease with heart failure and stage 1 through stage 4 chronic kidney disease, or unspecified chronic kidney disease; I50.32 Chronic diastolic (congestive) heart failure; D62 Acute posthemorrhagic anemia; K31.819 Angiodysplasia of stomach and duodenum without bleeding; K21.9 Gastro-esophageal reflux disease without esophagitis; Z20.822 Contact with and (suspected) exposure to COVID-19; J44.9 Chronic obstructive pulmonary disease, unspecified; M81.0 Age-related osteoporosis without current pathological fracture; M15.9 Polyosteoarthritis, unspecified; F17.210 Nicotine dependence, cigarettes, uncomplicated; E66.9 Obesity, unspecified; Z68.33 Body mass index [BMI] 33.0-33.9, adult; Z90.49 Acquired absence of other specified parts of digestive tract; Z79.01 Long term (current) use of anticoagulants; Z86.718 Personal history of other venous thrombosis and embolism
CPT/HCPCS: 36415; 36430; 70450; 80048; 80053; 82607; 82728; 82746; 82948; 83540; 83550; 83615; 83735; 83880; 84443; 84466; 85014; 85018; 85025; 85055; 85610; 86850; 86900; 86901; 86920; 87426; 94640; 97110; 97161; 97165; 97530; 97535; A9270; C9113; C9803; J0171; J0360; J0696; J1940; J2704; J7050; J7120; P9016